=== PATIENT | female | born 1975 | race Caucasian/White ===

== ENCOUNTER 2016-06-14 18:24 | Outpatient (CLI) | payer MEDICAID ==
[~2016-06-14] VITALS: Ht 154.9 cm; Wt 106.4 kg
--- OUTSIDE RECORDS SUMMARY | 2016-06-14 18:49 | XMS REPORT | CCD ---
Author Author ELIOT SIMPSON Organization Unknown Address [address] [place], [place] [id number] Care Team Providers Care Critical Care Nurse Practitioner Name Role Phone MEGAN PHYS, ER Attphys MEGAN PHYS, ER Prisurg Vital Signs Unknown. Allergies Allergy Code Allergy Type Reaction Status No Known Drug Allergies 0 No known drug allergies Active Procedures Unknown. History of Immunizations Unknown. Problems Problem Code Start Date Resolved Date Status INCOMPLETE MISCARRIAGE [id number] Active Results Unknown. Medications Medication Code Dose Units Frequency Route Modification Start Date/Time Stop Date/Time Motrin 800MG Oral Tablet 891940 1 TABLET THREE TIMES A DAY BY MOUTH TAKE WITH FOOD 04/12/2012 11:27 Folic Acid 1MG Oral Tablet 840629 1 TABLET DAILY BY MOUTH 04/12/2012 11:29 Medications Administered Unknown. Encounters Unknown. Social History Smoking Status Code Start Date End Date Never smoker [id number] Patient Decision Aids Unknown. Instructions You were admitted to [facility] on 09/18/2013. You were discharged from [facility] on 09/18/2013. Should you have any questions prior to discharge, please contact a member of your healthcare team. If you have left the hospital and have any questions, please contact your primary care physician. Chief Complaint and Reason For Visit Chief Complaint Date of Onset TOOTHACHE Function Status Unknown. Referral/Transition of Care Unknown.
[2016-06-14 18:50] VITALS: BP 177/81
[2016-06-14] MEDS ORDERED: NIFE30TA2 PO ×2 (19:13→20:40)
[2016-06-14] MEDS ORDERED: NIFEdipine ER 30 MG (PROCARDIA XL) TAB PO NR (19:15)
[2016-06-14 19:40] VITALS: BP 175/74
[2016-06-14 19:51] LABS: BASOPHILS % (AUTO) 0 % (0-10); EOSINOPHILS # (AUTO) 0.1 10^3/uL (0.0-0.3); EOSINOPHILS % (AUTO) 1 % (0-10); LYMPHOCYTES # (AUTO) 1.7 X 10^3 (1.0-4.0); LYMPHOCYTES % (AUTO) 23 % (12-44); MEAN CORPUSCULAR HEMOGLOBIN 29 PG (25-34); MEAN CORPUSCULAR HGB CONC 34 G/DL (32-36); MEAN CORPUSCULAR VOLUME 85 FL (80-99); MEAN PLATELET VOLUME 10.8 FL (7.4-10.4); MONOCYTES # (AUTO) 0.6 X 10^3 (0.0-1.0); MONOCYTES % (AUTO) 8 % (0-12); NEUTROPHILS # (AUTO) 5.1 X 10^3 (1.8-7.8); NEUTROPHILS % (AUTO) 69 % (42-75); PLATELET COUNT 184 10^3/uL (130-400); RED BLOOD COUNT 3.64 10^6/uL (4.35-5.85); RED CELL DISTRIBUTION WIDTH 13.6 % (10.0-14.5); WHITE BLOOD COUNT 7.5 10^3/uL (4.3-11.0)
[2016-06-14 19:55] VITALS: BP 157/69
[2016-06-14 20:10] VITALS: BP 156/59
[2016-06-14] MEDS ORDERED: PNV1TABL81 PO (20:11)
[2016-06-14 20:12] LABS: ALANINE AMINOTRANSFERASE 8 U/L (0-55); ALBUMIN 3.4 G/DL (3.2-4.5); ANION GAP 10 MMOL/L (5-14); ASPARTATE AMINO TRANSFERASE 11 U/L (5-34); BILIRUBIN,TOTAL 1.3 MG/DL (0.1-1.0); BLOOD UREA NITROGEN 6 MG/DL (7-18); BUN/CREATININE RATIO 10; CALCIUM 9.2 MG/DL (8.5-10.1); CARBON DIOXIDE 21 MMOL/L (21-32); CHLORIDE 106 MMOL/L (98-107); CREATININE SERUM 0.58 MG/DL (0.60-1.30); GFR ESTIMATED > 60; GLUCOSE 81 MG/DL (70-105); LACTATE DEHYDROGENASE 112 U/L (125-220); POTASSIUM 3.4 MMOL/L (3.6-5.0); SODIUM 137 MMOL/L (135-145); TOTAL PROTEIN 6.3 G/DL (6.4-8.2)
[2016-06-14] MEDS ORDERED: FOLI0.4T2 PO (20:13)
[2016-06-14 20:28] VITALS: BP 147/65
--- NOTE | 2016-06-15 10:53 | Physician Query-Final Dx ---
JOSE MENDOZA 06/15/16 1053: Clinic Account Progress/Dx Physician Query: Please give diagnosis Date of Service Jun 14, 2016 at 18:24 YOANA MOSLEY DO 06/15/16 1653: Clinic Account Progress/Dx DIAGNOSIS: Diagnosis chronic hypertension in elevated blood pressures headache in JOSE MENDOZA Jun 15, 2016 10:53 YOANA MOSLEY DO Jun 15, 2016 16:53
== END 2016-06-14 20:47 | disposition home or self-care (01) ==
LOC: LDRP 18:24 → WSo 18:24
PROVIDERS: ATTEND Obstetrics & Gynecology
DX: O10.913 Unspecified pre-existing hypertension complicating pregnancy, third trimester (principal); R51 Headache; Z3A.34 34 weeks gestation of pregnancy
CPT/HCPCS: 36415; 80053; 83615; 84550; 85025; 99214

== ENCOUNTER 2016-06-26 20:40 | Outpatient (CLI) | payer MEDICAID ==
[~2016-06-26] VITALS: Ht 154.9 cm; Wt 108.4 kg
[2016-06-26 20:30] VITALS: BP 149/72
[2016-06-26 20:40] VITALS: BP 145/70
[~2016-06-26 20:40] MED LIST: FOLI0.4T2 PO; NIFE30TA2 PO; PNV1TABL81 PO
[2016-06-26 20:58] LABS: BILIRUBIN,URINE NEGATIVE (NEGATIVE); KETONES,URINE NEGATIVE (NEGATIVE); LEUKOCYTE ESTERASE ,URINE 1+ (NEGATIVE); NITRITE,URINE NEGATIVE (NEGATIVE); PH,URINE 6.5 (5-9); PROTEIN,URINE 1+ (NEGATIVE); UROBILINOGEN,URINE NORMAL (NORMAL)
[2016-06-26] MEDS ORDERED: FERR500P12 PO (21:01)
[2016-06-26 21:12] LABS: SQUAMOUS EPITHELIAL CELL,UR 0-2 /HPF; WBC,URINE 0-2 /HPF
[2016-06-26] MEDS ORDERED: NS IV 1000 ML 1,000 ML IV SCH (22:00)
[2016-06-27 01:00] VITALS: BP 145/70
[2016-06-27] MEDS: NS IV 1000 ML 1,000 ML IV SCH ×2 (01:58→08:34)
[2016-06-27 03:45] VITALS: BP 184/77
[2016-06-27 04:15] VITALS: BP 160/67
[2016-06-27 06:30] VITALS: BP 148/72
[2016-06-27 07:45] VITALS: BP 162/74
--- NOTE | 2016-06-27 08:34 | History & Physical-OB ---
OB - Chief Complaint & HPI Date Date of Admission: Date of Admission: Chief Complaint/History OB-Reason for Admission/Chief: contractions Hx : 14 Hx Para: 8 Expected Date of Delivery: Jul 25, 2016 Gestational Age in Weeks: 35 Other reason for admission: Patient presents with pelvic pressure and uterine contractions after being at a dance competition in [place] all weekend. Reports No change in vision, cp, sob. +FM. Admitted last night due to contractions q 4-6 min, but cervix not making change. This morning the patient reports improvement in contraction pattern and not as painful, but continues to have mild contractions. Admission Nurse Assessment Rev: Yes History of Labs O neg Antibody neg RI RPR NR HBsAg NR HIV NR GC neg GBS neg Allergies and Home Medications Allergies Coded Allergies: amlodipine (Verified Allergy, Unknown, scalp crawling, 06/14/16) Home Medications Ferrous Sulfate, Dried Unknown Strength Powder 500 GM MC DAILY (Reported) Folic Acid 0.4 Mg Tablet 0.4 MG PO DAILY (Reported) Nifedipine 30 Mg Tab.er.24 30 MG PO BID (Reported) Pnv No.122/Iron/Folic Acid 1 Each Tablet 1 EACH PO DAILY (Reported) OB - History Hx of Present Care: Yes Ultrasounds: Normal mid trimester US Obstetrical Complications: Gestational Hypertension, Other (AMA, Previous C- section) Medical Complications: Other (Morbid obesity, Chronic HTN) Obstetrical History Hx : 14 Hx Para: 8 Patient Past Medical History CHTN Social History/Family History Recent Infectious Disease Expo: No Immunizations Date of Influenza Vaccine: Jan 25, 2016 OB - Admission Exam Physical Exam Vitals: Vital Signs 06/27/16 06/27/16 03:45 06:30 Temp 97.9 Pulse 86 Resp 18 B/P 148/72 O2 Delivery Room Air HEENT: NCAT Heart: Rhythm Normal Lungs: Clear Abdomen: Gravid Extremities: Normal Reflexes: Normal Cervical Dilatation: None Effacement: 50% Station: -3 Membranes: Intact Heart Rate: 130's Accelerations: Accelerations Present Decelerations: No Decelerations Short Term Variability: Present High [employer] Coach Variability: Average (6-25) Contractions on Admission: 6-10 Minutes Apart Intensity: Mild Labs Laboratory Tests Test 06/26/16 20:40 Range/Units Urine Bacteria TRACE /HPF Urine Bilirubin NEGATIVE NEGATIVE Urine Casts NONE /LPF Urine Clarity CLEAR Urine Color YELLOW Urine Crystals NONE /LPF Urine Culture Indicated NO Urine Glucose (UA) NEGATIVE NEGATIVE Urine Ketones NEGATIVE NEGATIVE Urine Leukocyte Esterase 1+ H NEGATIVE Urine Mucus NEGATIVE /LPF Urine Nitrite NEGATIVE NEGATIVE Urine Protein 1+ H NEGATIVE Urine RBC NONE /HPF Urine RBC (Auto) NEGATIVE NEGATIVE Urine Specific [place] 1.015 L 1.016-1.022 Urine Squamous Epithelial Cells 0-2 /HPF Urine Urobilinogen NORMAL NORMAL MG/DL Urine WBC 0-2 /HPF Urine pH 6.5 5-9 OB - Assessment/Plan/Diagnosis Plan Other Plan BPP, and PIH labs this morning if negative, patient to keep PNC follow up in one week. PTL and PreE precautions reviewed. Discharge Diagnosis Diagnosis: 41 yo @ 36.0 weeks Uterine contractions without cervical change- improved CHTN with superimposed GHTN AMA GBS neg Previous TEMO JUAN DO Jun 27, 2016 8:34 am
[2016-06-27 09:03] LABS: BASOPHILS % (AUTO) 0 % (0-10); EOSINOPHILS % (AUTO) 1 % (0-10); LYMPHOCYTES # (AUTO) 1.3 X 10^3 (1.0-4.0); LYMPHOCYTES % (AUTO) 19 % (12-44); MEAN CORPUSCULAR HEMOGLOBIN 29 PG (25-34); MEAN CORPUSCULAR HGB CONC 33 G/DL (32-36); MEAN CORPUSCULAR VOLUME 86 FL (80-99); MEAN PLATELET VOLUME 11.3 FL (7.4-10.4); MONOCYTES # (AUTO) 0.5 X 10^3 (0.0-1.0); MONOCYTES % (AUTO) 7 % (0-12); NEUTROPHILS # (AUTO) 5.1 X 10^3 (1.8-7.8); NEUTROPHILS % (AUTO) 73 % (42-75); PLATELET COUNT 160 10^3/uL (130-400); RED BLOOD COUNT 3.35 10^6/uL (4.35-5.85); RED CELL DISTRIBUTION WIDTH 14.3 % (10.0-14.5)
[2016-06-27 09:18] LABS: ALANINE AMINOTRANSFERASE < 6 U/L (0-55); ALBUMIN 2.9 G/DL (3.2-4.5); ANION GAP 10 MMOL/L (5-14); ASPARTATE AMINO TRANSFERASE 10 U/L (5-34); BILIRUBIN,TOTAL 1.1 MG/DL (0.1-1.0); BLOOD UREA NITROGEN 4 MG/DL (7-18); BUN/CREATININE RATIO 8; CALCIUM 7.9 MG/DL (8.5-10.1); CARBON DIOXIDE 18 MMOL/L (21-32); CHLORIDE 110 MMOL/L (98-107); CREATININE SERUM 0.51 MG/DL (0.60-1.30); GFR ESTIMATED > 60; GLUCOSE 78 MG/DL (70-105); POTASSIUM 3.5 MMOL/L (3.6-5.0); SODIUM 138 MMOL/L (135-145); TOTAL PROTEIN 5.5 G/DL (6.4-8.2); URIC ACID 5.2 MG/DL (2.6-7.2)
[2016-06-27 09:20] LABS: PROTEIN/CREATININE RATIO 0.13
--- NOTE | 2016-06-27 11:15 | Diagnostic Imaging Report ---
INDICATION: Decreased movement. TECHNIQUE: Limited real-time grayscale images were obtained over the gravid uterus in various projections. FINDINGS: The biophysical profile score is 8 out of 8. Heart rate is 136 beats per minute. Amniotic fluid index is 10.3. Fetus is in transverse presentation. IMPRESSION: Normal biophysical profile score of 8 out of 8. Dictated by: Dictated on workstation # [id number]
== END 2016-06-27 11:18 | disposition home or self-care (01) ==
LOC: WSo 20:40 → LDRP 20:40 → WSo 06-27 11:18
PROVIDERS: ATTEND Obstetrics & Gynecology
DX: O47.03 False labor before 37 completed weeks of gestation, third trimester (principal); O10.913 Unspecified pre-existing hypertension complicating pregnancy, third trimester; O09.523 Supervision of elderly multigravida, third trimester; O34.219 Maternal care for unspecified type scar from previous cesarean delivery; Z3A.36 36 weeks gestation of pregnancy
CPT/HCPCS: 36415; 76819; 80053; 81000; 82570; 84156; 84550; 85025; 96360; 96361; 99214

== ENCOUNTER 2016-06-30 20:15 | Outpatient (CLI) | payer MEDICAID ==
[~2016-06-30] VITALS: Ht 154.9 cm; Wt 108.4 kg
[~2016-06-30 20:15] MED LIST changes: +FERR500P12 PO
[2016-06-30 20:45] VITALS: BP 154/70
[2016-06-30 21:00] VITALS: BP 155/66
[2016-06-30 21:47] LABS: BILIRUBIN,URINE NEGATIVE (NEGATIVE); KETONES,URINE 3+ (NEGATIVE); LEUKOCYTE ESTERASE ,URINE 3+ (NEGATIVE); NITRITE,URINE NEGATIVE (NEGATIVE); PH,URINE 6.5 (5-9); PROTEIN,URINE 1+ (NEGATIVE); UROBILINOGEN,URINE NORMAL (NORMAL)
[2016-06-30 21:56] LABS: PROTEIN/CREATININE RATIO 0.19
[2016-06-30 22:08] VITALS: BP 151/70
--- NOTE | 2016-07-01 09:34 | Diagnostic Imaging Report ---
INDICATION: Fall, gestational hypertension biophysical profile performed in a routine fashion. Biophysical profile score 6/8, score 0/2 for breathing, scored 2/2 for movement posture and tone and amniotic fluid. heart rate is 142 beats per minute. Amniotic fluid index is 9.2 cm. The fetus measured 37 weeks 3 days by composite measurements. IMPRESSION: biophysical profile score 6/8 with score of zero for breathing. Dictated by: Dictated on workstation # [id number]
--- NOTE | 2016-07-01 14:35 | Physician Query-Final Dx ---
JOSE MENDOZA 07/01/16 1435: Clinic Account Progress/Dx Physician Query: Please give diagnosis Date of Service Jun 30, 2016 at 20:15 TEMO JUAN DO 07/04/16 1224: Clinic Account Progress/Dx DIAGNOSIS: Diagnosis 36week iup Uterine contractions Previous c/s Advanced maternal age JOSE GALICIA Jul 01, 2016 14:35 TEMO JUAN DO Jul 04, 2016 12:24
[2016-07-07] MEDS ORDERED: AMOX500C2 PO (10:09)
== END 2016-07-01 00:15 | disposition home or self-care (01) ==
LOC: WSo 20:15 → LDRP 20:16 → WSo 07-01 00:15
PROVIDERS: ATTEND Obstetrics & Gynecology
DX: O47.03 False labor before 37 completed weeks of gestation, third trimester (principal); O10.913 Unspecified pre-existing hypertension complicating pregnancy, third trimester; O09.523 Supervision of elderly multigravida, third trimester; O34.219 Maternal care for unspecified type scar from previous cesarean delivery; Z3A.36 36 weeks gestation of pregnancy
CPT/HCPCS: 76805; 76819; 81000; 82570; 84156; 99213

== ENCOUNTER 2016-07-05 16:06 | Inpatient (IN) | payer MEDICAID ==
[~2016-07-05] VITALS: Ht 154.9 cm; Wt 107.5 kg
[2016-07-05 16:06] VITALS: BP 170/76
[2016-07-05] MEDS ORDERED: LACTATED RINGERS 1,000 ML IV ONE (16:13)
[2016-07-05] MEDS ORDERED: METOCLOPRAMIDE INJ 10 MG/2 ML (REGLAN) ONE (16:13)
[2016-07-05] MEDS ORDERED: CITRIC ACID/SOB CIT (BICITRA) 30 ML UDC ONE (16:13)
[2016-07-05] MEDS ORDERED: FAMOTIDINE 20MG/2ML IV (PEPCID) ONE (16:13)
--- NOTE | 2016-07-05 16:31 | History & Physical-OB ---
OB - Chief Complaint & HPI Date Date of Admission: Date of Admission: 07/05/2016 Chief Complaint/History OB-Reason for Admission/Chief: Section Hx : 14 Hx Para: 8 Expected Date of Delivery: Jul 25, 2016 Gestational Age in Weeks: 37 Gestational Age in Days: 1 Indication for : desires repeat Admission Nurse Assessment Rev: Yes History of Labs O neg Antibody neg RI RPR NR HIV NR HBsAg NR GC neg GBS neg Allergies and Home Medications Allergies Coded Allergies: amlodipine (Verified Allergy, Unknown, scalp crawling, 06/14/16) Home Medications Ferrous Sulfate, Dried Unknown Strength Powder 500 GM MC DAILY (Reported) Folic Acid 0.4 Mg Tablet 0.4 MG PO DAILY (Reported) Nifedipine 30 Mg Tab.er.24 30 MG PO BID (Reported) Pnv No.122/Iron/Folic Acid 1 Each Tablet 1 EACH PO DAILY (Reported) OB - History Hx of Present Care: Yes Ultrasounds: Normal mid trimester US Obstetrical Complications: Gestational Diabetes, Gestational Hypertension, Other (AMA, Obesity) Medical Complications: Other (CHTN) Patient Past Medical History CHTN, Morbid obesity Immunizations Date of Influenza Vaccine: Jan 25, 2016 OB - Admission Exam Physical Exam HEENT: Nasal Mucosa Normal Lungs: Clear Abdomen: Other (Gravid, low pelvic scar/uterine incisional pain) Extremities: Normal Reflexes: Normal Cervical Dilatation: Fingertip Effacement: 50% Station: -1 Membranes: Intact Heart Rate: 130's Accelerations: Accelerations Present Decelerations: No Decelerations Short Term Variability: Present Mcfp Variability: Average (6-25) Contractions on Admission: 6-10 Minutes Apart Intensity: Mild OB - Assessment/Plan/Diagnosis Assessment Assessment: section Plan Plan: Section Other Plan Proceed with Discharge Diagnosis Diagnosis: 41 yo G14 P 8 @ 37.1 Previous cs x 5 AMA Gestational HTN superimposed on CHTN GDMA1- non compliance with BS log GBS neg Uterine scar/incisional tenderness TEMO JUAN DO Jul 05, 2016 4:31 pm
[2016-07-05] MEDS ORDERED: METOCLOPRAMIDE INJ 10 MG/2 ML (REGLAN) IV ONE (16:45)
[2016-07-05] MEDS ORDERED: FAMOTIDINE 20MG/2ML IV (PEPCID) IV ONE (16:45)
[2016-07-05] MEDS ORDERED: CITRIC ACID/SOB CIT (BICITRA) 30 ML UDC PO ONE (16:45)
[2016-07-05] MEDS: LACTATED RINGERS 1,000 ML IV PRN ×2 (16:53→17:31)
[2016-07-05 16:58] LABS: BASOPHILS % (AUTO) 0 % (0-10); EOSINOPHILS % (AUTO) 0 % (0-10); LYMPHOCYTES # (AUTO) 1.4 X 10^3 (1.0-4.0); LYMPHOCYTES % (AUTO) 21 % (12-44); MEAN CORPUSCULAR HEMOGLOBIN 28 PG (25-34); MEAN CORPUSCULAR HGB CONC 33 G/DL (32-36); MEAN CORPUSCULAR VOLUME 84 FL (80-99); MEAN PLATELET VOLUME 11.7 FL (7.4-10.4); MONOCYTES # (AUTO) 0.5 X 10^3 (0.0-1.0); MONOCYTES % (AUTO) 7 % (0-12); NEUTROPHILS # (AUTO) 4.8 X 10^3 (1.8-7.8); NEUTROPHILS % (AUTO) 72 % (42-75); PLATELET COUNT 193 10^3/uL (130-400); RED BLOOD COUNT 3.69 10^6/uL (4.35-5.85); RED CELL DISTRIBUTION WIDTH 14.2 % (10.0-14.5); WHITE BLOOD COUNT 6.8 10^3/uL (4.3-11.0)
[2016-07-05 17:00] VITALS: BP 150/66
[2016-07-05] MEDS ORDERED: ceFAZolin INJECTION 1,000 MG in NS (IVPB) 50 ML IV NR (17:00)
[2016-07-05] MEDS ORDERED: PNV11TAB5 PO (17:00)
[2016-07-05] MEDS: ceFAZolin 2 GM/50 ML NS 50 ML IV ONE ×2 (17:14→17:16)
[2016-07-05 17:25] LABS: ALANINE AMINOTRANSFERASE 7 U/L (0-55); ALBUMIN 3.2 G/DL (3.2-4.5); ANION GAP 12 MMOL/L (5-14); ASPARTATE AMINO TRANSFERASE 14 U/L (5-34); BILIRUBIN,TOTAL 1.1 MG/DL (0.1-1.0); BLOOD UREA NITROGEN 6 MG/DL (7-18); BUN/CREATININE RATIO 11; CALCIUM 8.4 MG/DL (8.5-10.1); CARBON DIOXIDE 17 MMOL/L (21-32); CHLORIDE 108 MMOL/L (98-107); CREATININE SERUM 0.57 MG/DL (0.60-1.30); GFR ESTIMATED > 60; GLUCOSE 84 MG/DL (70-105); POTASSIUM 3.3 MMOL/L (3.6-5.0); SODIUM 137 MMOL/L (135-145); TOTAL PROTEIN 6.1 G/DL (6.4-8.2)
[2016-07-05 17:30] VITALS: BP 166/68
[2016-07-05] MEDS ORDERED: fentaNYL INJECTION 100 MCG/2 ML AMP ONE (17:32)
[2016-07-05] MEDS ORDERED: KETAMINE HCL 100 MG/ML 5 ML VIAL ONE (17:33)
[2016-07-05 18:00] VITALS: BP 150/67
[2016-07-05] MEDS ORDERED: OXYTOCIN/NORMAL SALINE 1,000 ML IV ONE (18:44)
[2016-07-05] MEDS ORDERED: KETOROLAC 30 MG/ML VIAL ONE (18:55)
[2016-07-05] MEDS ORDERED: ONDANSETRON 4 MG/2 ML (SDV) Z0FRAN ONE (18:55)
[2016-07-05] MEDS ORDERED: OXYTOCIN/NORMAL SALINE 500 ML IV SCH (19:14)
[2016-07-05] MEDS ORDERED: TETANUS,DIPTH,PERTUSS P/F (BOOSTRIX) 0.5 ML VIAL IM SCH (19:15)
[2016-07-05] MEDS: KETOROLAC 30 MG/ML VIAL IVP SCH (19:15)
[2016-07-05] MEDS ORDERED: ONDANSETRON 4 MG/2 ML (SDV) Z0FRAN IVP PRN (19:15)
[2016-07-05] MEDS ORDERED: MEASLES,MUMPS,RUBELLA 1 EA INJ SC SCH (19:15)
[2016-07-05] MEDS ORDERED: HYDROmorphone (DILAUDID) 2 MG/ML VIAL IVP PRN (19:15)
[2016-07-05 20:40] VITALS: BP 150/81
[2016-07-05] MEDS ORDERED: NIFEdipine ER 60 MG (PROCARDIA XL) TAB PO ONE (21:31)
[2016-07-05] MEDS: DOCUSATE SODIUM 100 MG (COLACE) CAP PO SCH (21:35)
[2016-07-05] MEDS: HYDROcodone/APAP 5 MG/325 MG (LORTAB) TAB PO PRN (21:35)
[2016-07-05 23:45] VITALS: BP 156/85
[2016-07-06] MEDS: KETOROLAC 30 MG/ML VIAL IVP SCH ×3 (00:38→12:31)
[2016-07-06] MEDS: CATHETER FLUSH 10 ML SYR IV SCH ×2 (00:41→06:27)
[2016-07-06] MEDS: HYDROcodone/APAP 5 MG/325 MG (LORTAB) TAB PO PRN ×6 (02:00→22:48)
[2016-07-06 04:00] VITALS: BP 121/70
[2016-07-06 05:38] LABS: BASOPHILS % (AUTO) 0 % (0-10); EOSINOPHILS # (AUTO) 0.1 10^3/uL (0.0-0.3); EOSINOPHILS % (AUTO) 1 % (0-10); LYMPHOCYTES # (AUTO) 1.3 X 10^3 (1.0-4.0); LYMPHOCYTES % (AUTO) 16 % (12-44); MEAN CORPUSCULAR HEMOGLOBIN 29 PG (25-34); MEAN CORPUSCULAR HGB CONC 34 G/DL (32-36); MEAN CORPUSCULAR VOLUME 85 FL (80-99); MEAN PLATELET VOLUME 11.5 FL (7.4-10.4); MONOCYTES # (AUTO) 0.6 X 10^3 (0.0-1.0); MONOCYTES % (AUTO) 7 % (0-12); NEUTROPHILS # (AUTO) 6.3 X 10^3 (1.8-7.8); NEUTROPHILS % (AUTO) 76 % (42-75); PLATELET COUNT 158 10^3/uL (130-400); RED BLOOD COUNT 3.27 10^6/uL (4.35-5.85); RED CELL DISTRIBUTION WIDTH 14.2 % (10.0-14.5); WHITE BLOOD COUNT 8.3 10^3/uL (4.3-11.0)
[2016-07-06 07:45] VITALS: BP 154/90
--- NOTE | 2016-07-06 07:55 | Postpartum Progress Note ---
Post Op Post-operative Day #1 Subjective: Patient is without complaints. Ambulating, voiding after olivares removed. Tolerating a regular diet without nausea or vomiting. Normal lochia. Pain is well controlled with oral pain medications. Passing flatus. Breast feeding although baby currently in nursery due to respiratory issues. Denies si/sx super-imposed pre-eclampsia. Objective: Vital Sign - Last 12Hours 07/05/16 07/05/16 07/06/16 20:40 23:45 04:00 Temp 97.8 99.7 97.3 Pulse 79 96 90 Resp 18 18 18 B/P 150/81 156/85 121/70 Pulse Ox 99 97 98 O2 Delivery Room Air Room Air Room Air Intake and Output 07/06/16 00:00 Intake Total 1050 ml Output Total 750 ml Balance 300 ml Physical Exam: General - Alert and oriented, no apparent distress Abdomen - Soft, appropriately tender to palpation, non-distended, fundus firm at umbilicus Incision - intact, steri strips saturated with blood, no erythema or induration Extremities - no edema, negative Katy's bilaterally Laboratory Tests 07/05/16 16:35: Alanine Aminotransferase (ALT/SGPT) 7, Albumin 3.2, Alkaline Phosphatase 110, Anion Gap 12, Aspartate Amino Transf (AST/SGOT) 14, BUN/Creatinine Ratio 11, Basophils # (Auto) 0.0, Basophils (%) (Auto) 0, Blood Urea Nitrogen 6L, Calcium Level 8.4L, Carbon Dioxide Level 17L, Chloride Level 108H, Creatinine 0.57L, Eosinophils # (Auto) 0.0, Eosinophils (%) (Auto) 0, Estimat Glomerular Filtration Rate > 60, Glucose Level 84, Hematocrit 31L, Hemoglobin 10.4L, Lymphocytes # (Auto) 1.4, Lymphocytes (%) (Auto) 21, Mean Corpuscular Hemoglobin 28, Mean Corpuscular Hemoglobin Concent 33, Mean Corpuscular Volume 84, Mean Platelet Volume 11.7H, Monocytes # (Auto) 0.5, Monocytes (%) (Auto) 7, Neutrophils # (Auto) 4.8, Neutrophils (%) (Auto) 72, Platelet Count 193, Potassium Level 3.3L, Red Blood Count 3.69L, Red Cell Distribution Width 14.2, Sodium Level 137, Total Bilirubin 1.1H, Total Protein 6.1L, White Blood Count 6.8 07/06/16 05:22: Basophils # (Auto) 0.0, Basophils (%) (Auto) 0, Eosinophils # (Auto) 0.1, Eosinophils (%) (Auto) 1, Hematocrit 28L, Hemoglobin 9.5L, Lymphocytes # (Auto) 1.3, Lymphocytes (%) (Auto) 16, Mean Corpuscular Hemoglobin 29, Mean Corpuscular Hemoglobin Concent 34, Mean Corpuscular Volume 85, Mean Platelet Volume 11.5H, Monocytes # (Auto) 0.6, Monocytes (%) (Auto) 7, Neutrophils # ( Auto) 6.3, Neutrophils (%) (Auto) 76H, Platelet Count 158, Red Blood Count 3.27L , Red Cell Distribution Width 14.2, White Blood Count 8.3 Assessment: 41 y/o post-operative day # 1, status post repeat CD. Recovering well, hemodynamically stable Acute blood loss anemia Hgb 9.5 Rh neg, infant Rh pos Worsening chronic HTN at term GDMA1, noncompliance with blood sugar recordings Obesity - BMI 45 Plan: Routine post-operative care. Encourage breast feeding. Encourage ambulation. VTE prophylaxis: SCDs. Would optimally add lovenox given multiple risk factors for VTE including /post-operative state, class III obesity but due to incisional bleeding overnight, will hold today and consider addition tomorrow. Ferrous sulfate supplementation. Procardia daily, watch BPs and symptoms. HELLP labs unremarkable. No indication for mag sulfate at this time. Fasting FSBS tomorrow Plan for discharge POD#2 or 3 Vitals - Labs Vital Signs - I&O Vital Signs Date Time Temp Pulse Resp B/P Pulse Ox O2 Delivery O2 Flow Rate FiO2 07/06/16 04:00 97.3 90 18 121/70 98 Room Air 07/05/16 23:45 99.7 96 18 156/85 97 Room Air 07/05/16 20:40 97.8 79 18 150/81 99 Room Air 07/05/16 18:00 85 20 150/67 Room Air 07/05/16 17:30 83 20 166/68 Room Air 07/05/16 17:00 83 20 150/66 Room Air 07/05/16 16:06 98.9 92 20 170/76 Room Air I & O 07/06/16 07:00 Intake Total 3820 ml Output Total 2200 ml Balance 1620 ml Labs Laboratory Tests 07/05/16 16:35: Alanine Aminotransferase (ALT/SGPT) 7, Albumin 3.2, Alkaline Phosphatase 110, Anion Gap 12, Aspartate Amino Transf (AST/SGOT) 14, BUN/Creatinine Ratio 11, Basophils # (Auto) 0.0, Basophils (%) (Auto) 0, Blood Urea Nitrogen 6L, Calcium Level 8.4L, Carbon Dioxide Level 17L, Chloride Level 108H, Creatinine 0.57L, Eosinophils # (Auto) 0.0, Eosinophils (%) (Auto) 0, Estimat Glomerular Filtration Rate > 60, Glucose Level 84, Hematocrit 31L, Hemoglobin 10.4L, Lymphocytes # (Auto) 1.4, Lymphocytes (%) (Auto) 21, Mean Corpuscular Hemoglobin 28, Mean Corpuscular Hemoglobin Concent 33, Mean Corpuscular Volume 84, Mean Platelet Volume 11.7H, Monocytes # (Auto) 0.5, Monocytes (%) (Auto) 7, Neutrophils # (Auto) 4.8, Neutrophils (%) (Auto) 72, Platelet Count 193, Potassium Level 3.3L, Red Blood Count 3.69L, Red Cell Distribution Width 14.2, Sodium Level 137, Total Bilirubin 1.1H, Total Protein 6.1L, White Blood Count 6.8 07/06/16 05:22: Basophils # (Auto) 0.0, Basophils (%) (Auto) 0, Eosinophils # (Auto) 0.1, Eosinophils (%) (Auto) 1, Hematocrit 28L, Hemoglobin 9.5L, Lymphocytes # (Auto) 1.3, Lymphocytes (%) (Auto) 16, Mean Corpuscular Hemoglobin 29, Mean Corpuscular Hemoglobin Concent 34, Mean Corpuscular Volume 85, Mean Platelet Volume 11.5H, Monocytes # (Auto) 0.6, Monocytes (%) (Auto) 7, Neutrophils # ( Auto) 6.3, Neutrophils (%) (Auto) 76H, Platelet Count 158, Red Blood Count 3.27L , Red Cell Distribution Width 14.2, White Blood Count 8.3 ELIJAH KAPADIA MD Jul 06, 2016 07:55
--- NOTE | 2016-07-06 07:56 | Discharge Inst-Women's Service ---
Discharge Inst-Women's Serv Depart Medication/Instructions New, Converted or Re-Newed RX: RX on Chart Final Diagnosis Worsening chronic hypertension at term, history of delivery Consults/Follow Up Additional Follow Up: Yes Orders/Referrals [address] Escobar for BP check/incision check [address] Escobar Activity Driving Instructions: No Driving for 1 Week (or while taking narcotic pain medications) NO SMOKING: NO SMOKING Nothing Inside Vagina: No Douching, No Onida, No Tampons Other Activity No lifting > 10 lb, no strenuous activity until cleared by Dr. Escobar to do so Diet Discharge Diet: No Restrictions Symptoms to Report to DrGavin: Bleeding Excessive, Pain Increased, Fever Over 101 Degrees F, Pain/Pressure in Chest, Vaginal Bleeding Increase, Dizziness/Fainting , Nausea/Vomiting, Shortness of Breath Severe headache, vision changes, right upper quadrant abdominal pain, sudden increase in edema For Any Problems or Questions: Contact Your Physician, Go to Emergency Room Skin/Wound Care Infection Signs and Symptoms: Increased Redness, Foul Odor of Wound, Increased Drainage Operative Area Clean and Dry: Keep Incision Clean/Dry Stitches/Keith/Dermabond: Dermabond, Care of Stitches Bathing Instructions: ELIJAH Sanz MD Jul 06, 2016 07:56
[2016-07-06] MEDS ORDERED: HYDR-3812 PO (07:57)
[2016-07-06] MEDS ORDERED: IBUP-1773 PO (07:57)
[2016-07-06] MEDS ORDERED: DOCU100C37 PO (07:57)
[2016-07-06] MEDS ORDERED: NIFEdipine ER 60 MG (PROCARDIA XL) TAB PO SCH (09:00)
[2016-07-06] MEDS: DOCUSATE SODIUM 100 MG (COLACE) CAP PO SCH ×2 (09:49→20:33)
[2016-07-06] MEDS: NIFEdipine ER 60 MG (PROCARDIA XL) TAB PO SCH (12:29)
--- NOTE | 2016-07-06 12:34 | OPERATIVE REPORT ---
PROCEDURE PHYSICIAN: TEMO JUAN DATE OF PROCEDURE: 07/05/2016 PREOPERATIVE DIAGNOSIS: 1. 41-year-old G14, P6 at 37 weeks and one day gestation. 2. Previous section x5. 3. Advanced maternal age. 4. Superimposed gestational hypertension on chronic hypertension. 5. Morbid obesity. 6. Uterine scar tenderness. POSTOPERATIVE DIAGNOSES: 1. 41-year-old G14, P6 at 37 weeks and one day gestation. 2. Previous section x5. 3. Advanced maternal age. 4. Superimposed gestational hypertension on chronic hypertension. 5. Morbid obesity. 6. Uterine scar tenderness. PROCEDURE: Repeat low transverse section. SURGEON: Dr. Temo Juan. ANESTHESIA: Spinal. ESTIMATED BLOOD LOSS: 600 mL. URINE OUTPUT: 100 mL, clear at the end of the procedure. FLUIDS: 1500 mL lactated ringer solution. FINDINGS: Live male infant weighing 7 pounds even, Apgars of 8 and 8. Grossly normal appearing uterus, bilateral fallopian tubes, and ovaries with extensive scarring of the rectus fascia to the rectus muscle and peritoneal tissue. INDICATIONS FOR THE PROCEDURE: This 41-year-old female was followed in my office and scheduled for repeat at 39 weeks. Her was complicated by chronic hypertension which became worsening throughout the given the diagnosis of gestational hypertension superimposed on chronic hypertension. She also is advanced maternal age at age 41. She had normal free cell DNA testing through the . She began to have elevated blood pressures in the 170s/100s and presented today with lower uterine tenderness and contractions. Due to patient's gestational age of 37 weeks and indication for suspected uterine dehiscence, I did discuss with the patient proceeding with at 37 weeks. Risks of the procedures have the patient in detail including risk of bleeding, risk of infection, risk of blood transfusion, risk of anesthesia, risk to the infant at 37 weeks and delivery at 37 weeks, risk for need for hysterectomy and even were all discussed with the patient. After all of her questions were answered, consent is obtained and patient was taken the operating room. OPERATIVE REPORT IN DETAIL: Once in the operating room, spinal analgesia was found to be adequate. She was placed in the supine position, leftward tilt, prepped and draped in the normal sterile fashion. Anesthesia was tested, a timeout is performed and 2 grams Ancef are administered. I then make a Pfannenstiel skin incision through previously existing scar using a knife and carried down to the underlying fascia using the Bovie cautery. The fascial incision was extended laterally using Bovie cautery the deep layer of the fascia is scarred and adhesed to the underlying rectus muscles which allows me to separate the rectus muscles laterally as these muscles are essentially obliterated by me taking down the fascia. This exposes the peritoneum down the midline which was also scarred to the back of the fascia, I enter it as cephalad as I could to avoid any bladder injury. I then extend this excision laterally with good visualization of underlying bowel and bladder using the Metzenbaum scissors. Once this is extended laterally I have adequate peritoneal access and place an Kostas ring retractor into the peritoneal incision. Once it is deployed excellent lateral sidewall retraction is noted. I then am able to visualize the lower uterine segment which is found to be thinned out. I make a low transverse incision through the uterus using a knife and bluntly dissect the peritoneum and serosa off the lower uterine segment creating a bladder flap. I then proceed with my myotomy until membranes are visualized. I then extend the uterine incision using bandage scissors laterally and superiorly and then perform amniotomy using an Allis clamp. Clear fluid is noted at the time of rupture. The is found in vertex presentation. Its head is elevated up to the incision. With gentle fundal pressure, the infant's head is delivered through the incision where the naris and oropharynx are bulb suctioned. Anterior posterior shoulders were delivered and the is then brought onto the operative field where the cord is dually clamped and cut and the is handed off to the awaiting nurses in attendance. The cord blood was collected. Three vessel cord with intact placenta is delivered spontaneously thereafter. IV Pitocin is initiated to facilitate uterine contractions. The uterine fundus becomes firmer by manual massage. The uterus is exteriorized and cleared of all endometrial, clots and debris. I then proceed with exteriorizing the uterus and closing the uterine incision using 0 Vicryl suture in a running lock fashion. A second layer of imbricating 0 Monocryl is placed. Excellent hemostasis is noted after doing so. I then place the uterus back into the incision, copiously irrigate the pelvis using normal saline. Once again, no active bleeding is noted from any of my dissection planes. I then proceed with placing intercede antiadhesive over my low transverse incision and proceed with closing the peritoneum using 3-0 Vicryl suture in a running fashion. The fascia is reapproximated using 0 Vicryl suture in a running fashion. Subcutaneous tissues reapproximated using 3-0 plain interrupted subcutaneous stitch and skin reapproximated using 4-0 Monocryl in a running, subcuticular stitch. Steri-strips were placed over the incision and a sterile dressing and adhesive white tape. The patient tolerated the procedure well. She was taken to recovery area in stable condition. Lap and sponge counts were correct at the end of the procedure. Instrument counts correct as well. Job ID: [id number] Dictated Date: 07/05/2016 19:16:03 Harvest Crew Supervisor Date: 07/06/2016 12:18:00 / michael
--- NOTE | 2016-07-06 12:39 | Anesthesia-Regional Post-Op ---
Regional Patient Condition Mental Status: Alert, Oriented x3 Circulation: Same as Pre-Op Headache: Absent Sensation: Full Recovery Motor Block: Absent Post Op Complications Complications None Follow Up Care/Instructions Patient Instructions None needed. Anesthesia/Patient Condition Patient is doing well, no complaints, stable vital signs, no apparent adverse anesthesia problems. No complications reported per nursing. FERNANDEZ MCQUEEN CRNA Jul 06, 2016 12:39
--- NOTE | 2016-07-06 13:05 | Anesthesia-Regional Post-Op ---
Regional Patient Condition Mental Status: Alert, Oriented x3 Circulation: Same as Pre-Op Headache: Absent Sensation: Full Recovery Motor Block: Absent Post Op Complications Complications None Follow Up Care/Instructions Patient Instructions None needed. Anesthesia/Patient Condition Patient is doing well, no complaints, stable vital signs, no apparent adverse anesthesia problems. No complications reported per nursing. SENDY LARA CRNA Jul 06, 2016 13:05
[2016-07-06 13:51] VITALS: BP 147/74
[2016-07-06] MEDS: IBUPROFEN 600 MG (MOTRIN) TAB PO SCH (18:12)
[2016-07-06] MEDS: FERROUS SULF 325 MG (IRON) TAB PO SCH (18:14)
[2016-07-06 18:18] VITALS: BP 129/68
[2016-07-06 20:33] VITALS: BP 149/81
[2016-07-07 01:18] VITALS: BP 144/86
[2016-07-07] MEDS: IBUPROFEN 600 MG (MOTRIN) TAB PO SCH ×3 (01:18→13:51)
[2016-07-07] MEDS: HYDROcodone/APAP 5 MG/325 MG (LORTAB) TAB PO PRN ×3 (05:26→15:24)
[2016-07-07 08:00] VITALS: BP 139/78
[2016-07-07] MEDS: FERROUS SULF 325 MG (IRON) TAB PO SCH (08:14)
[2016-07-07] MEDS: DOCUSATE SODIUM 100 MG (COLACE) CAP PO SCH (08:14)
[2016-07-07] MEDS: NIFEdipine ER 60 MG (PROCARDIA XL) TAB PO SCH (08:15)
[2016-07-07] MEDS ORDERED: AMOX500C2 PO (10:09)
--- NOTE | 2016-07-07 10:11 | Progress Note-Standard ---
Standard Progress Note Progress Notes/Assess & Plan Progress/Assessment & Plan Post-operative Day #1 Subjective: Patient is without complaints. Ambulating, voiding after olivares removed. Tolerating a regular diet without nausea or vomiting. Normal lochia. Pain is well controlled with oral pain medications. Passing flatus. Breast feeding although baby currently in nursery due to respiratory issues. Denies si/sx super-imposed pre-eclampsia. Objective: Vital Sign - Last 12Hours 07/05/16 07/05/16 07/06/16 20:40 23:45 04:00 Temp 97.8 99.7 97.3 Pulse 79 96 90 Resp 18 18 18 B/P 150/81 156/85 121/70 Pulse Ox 99 97 98 O2 Delivery Room Air Room Air Room Air Intake and Output 07/06/16 00:00 Intake Total 1050 ml Output Total 750 ml Balance 300 ml Physical Exam: General - Alert and oriented, no apparent distress Abdomen - Soft, appropriately tender to palpation, non-distended, fundus firm at umbilicus Incision - intact, steri strips saturated with blood, no erythema or induration Extremities - no edema, negative Katy's bilaterally Laboratory Tests 07/05/16 16:35: Alanine Aminotransferase (ALT/SGPT) 7, Albumin 3.2, Alkaline Phosphatase 110, Anion Gap 12, Aspartate Amino Transf (AST/SGOT) 14, BUN/Creatinine Ratio 11, Basophils # (Auto) 0.0, Basophils (%) (Auto) 0, Blood Urea Nitrogen 6L, Calcium Level 8.4L, Carbon Dioxide Level 17L, Chloride Level 108H, Creatinine 0.57L, Eosinophils # (Auto) 0.0, Eosinophils (%) (Auto) 0, Estimat Glomerular Filtration Rate > 60, Glucose Level 84, Hematocrit 31L, Hemoglobin 10.4L, Lymphocytes # (Auto) 1.4, Lymphocytes (%) (Auto) 21, Mean Corpuscular Hemoglobin 28, Mean Corpuscular Hemoglobin Concent 33, Mean Corpuscular Volume 84, Mean Platelet Volume 11.7H, Monocytes # (Auto) 0.5, Monocytes (%) (Auto) 7, Neutrophils # (Auto) 4.8, Neutrophils (%) (Auto) 72, Platelet Count 193, Potassium Level 3.3L, Red Blood Count 3.69L, Red Cell Distribution Width 14.2, Sodium Level 137, Total Bilirubin 1.1H, Total Protein 6.1L, White Blood Count 6.8 07/06/16 05:22: Basophils # (Auto) 0.0, Basophils (%) (Auto) 0, Eosinophils # (Auto) 0.1, Eosinophils (%) (Auto) 1, Hematocrit 28L, Hemoglobin 9.5L, Lymphocytes # (Auto) 1.3, Lymphocytes (%) (Auto) 16, Mean Corpuscular Hemoglobin 29, Mean Corpuscular Hemoglobin Concent 34, Mean Corpuscular Volume 85, Mean Platelet Volume 11.5H, Monocytes # (Auto) 0.6, Monocytes (%) (Auto) 7, Neutrophils # ( Auto) 6.3, Neutrophils (%) (Auto) 76H, Platelet Count 158, Red Blood Count 3.27L , Red Cell Distribution Width 14.2, White Blood Count 8.3 Assessment: 41 y/o post-operative day # 2, status post repeat CD. Recovering well, hemodynamically stable Acute blood loss anemia Hgb 9.5 Worsening chronic HTN at term GDMA1 Obesity - BMI 45 Plan: Routine post-operative care. Encourage breast feeding. Encourage ambulation. Ferrous sulfate supplementation. Procardia daily Plan for discharge later today TEMO JUAN DO Jul 07, 2016 10:11 am
[2016-07-07 12:20] VITALS: BP 136/72
[2016-07-07 16:00] VITALS: BP 136/72
== END 2016-07-07 16:00 | disposition home or self-care (01) | DRG 765 ==
LOC: WSo 16:06 → LDRP 16:07 → WSo 16:33 → LDRP 17:40 → WS 20:20
PROVIDERS: ADMIT Obstetrics & Gynecology; ATTEND Obstetrics & Gynecology
PROC: 10D00Z1 Extraction of Products of Conception, Low, Open Approach (ICD-10-PCS; principal; 2016-07-05 18:14)
DX: O34.211 Maternal care for low transverse scar from previous cesarean delivery (principal); O09.523 Supervision of elderly multigravida, third trimester; O24.420 Gestational diabetes mellitus in childbirth, diet controlled; O10.92 Unspecified pre-existing hypertension complicating childbirth; O99.214 Obesity complicating childbirth; E66.01 Morbid (severe) obesity due to excess calories; Z68.41 Body mass index [BMI] 40.0-44.9, adult; Z37.0 Single live birth; Z3A.37 37 weeks gestation of pregnancy; Z23 Encounter for immunization
CPT/HCPCS: 36415; 80053; 82962; 83033; 85025; 86850; 86900; 86901; 88307; 90715; 94664; 99212

== ENCOUNTER → 2018-03-16 | Outpatient (CLI) | payer MEDICAID ==
[~2018-03-16] MED LIST changes: +ACHD5005 PO; +AMOX500C2 PO; +DOCU100C37 PO; +IBUP-1773 PO; +IOHEXOL 350 MG/ML 100 ML (OMNIPAQUE 350) VIAL IV ONE; +NS 250 ML (IVPB) BAG IV ONE; +PNV11TAB5 PO; +RECEIVED CONTRAST (Hold Metformin) IV SCH
--- NOTE | 2018-03-16 11:40 | Diagnostic Imaging Report ---
INDICATION: Right lower quadrant pelvic pain. TECHNIQUE: Multiple real-time grayscale sonographic images were obtained of the pelvis transabdominally and transvaginally. CORRELATION STUDY: None FINDINGS: UTERUS/ENDOMETRIUM: Uterus measures 7.9 x 6.1 x 4.6 cm. Endometrial thickness is 9 mm. The uterus and endometrium appearing unremarkable. RIGHT OVARY: Not able to be visualized, perhaps owing to position or obscured by bowel. LEFT OVARY: 2.6 x 2.1 x 1.6 cm. There are follicles and/or cysts of the left ovary. Largest measuring 14 x 7 x 12 mm. Vascular flow is demonstrated to the left ovary. No significant free pelvic fluid. IMPRESSION: 1. Left ovarian cyst and/or follicles, likely physiologic. The right ovary is unable to be visualized perhaps owing to its position or obscured by overlying bowel gas. Dictated by: Dictated on workstation # [id number]
--- NOTE | 2018-03-16 12:02 | Diagnostic Imaging Report ---
PROCEDURE: CT abdomen with and without contrast. TECHNIQUE: Multiple contiguous axial CT images of the abdomen were obtained prior to and after intravenous administration of iodinated contrast. INDICATION: Lump in the right mid abdominal region. COMPARISON: No prior studies are available for comparison. FINDINGS: Imaging through the lung bases does show circumscribed noncalcified nodule on the left lower lobe measuring 12 mm in size. This does have a fairly benign appearance. The liver demonstrates diffuse low density consistent with hepatic steatosis. No discrete liver mass is identified. The gallbladder is surgically absent. No biliary ductal dilatation is seen. The pancreas and spleen are unremarkable. No adrenal mass is identified. Small low-density upper pole left kidney is noted suggestive of a cyst. The aorta is non-aneurysmal. There is an abdominal wall defect in the right para midline location consistent with a ventral hernia. This does contain multiple small bowel loops. However, no definite obstruction is seen. There is no ascites. Central retroperitoneum does show small lymph nodes in the left para-aortic region. No mesenteric lymphadenopathy is seen. IMPRESSION: 1. 12 mm circumscribed noncalcified nodule left lower lobe. Short followup with repeat CT chest in 3-6 months recommended to confirm stability. 2. Hepatic steatosis. 3. Right para midline ventral hernia containing small bowel loops. No obstruction is identified. Dictated by: Dictated on workstation # [id number]
--- NOTE | 2018-03-16 12:21 | Diagnostic Imaging Report ---
INDICATION: Routine screening. COMPARISON: No prior mammograms are available for comparison. TECHNIQUE: 2D and 3D bilateral screening mammography was performed with CAD. FINDINGS: Both breasts are heterogeneously dense, limiting the sensitivity of mammography. There is a tiny circumscribed nodule in the superior right breast, likely a small cyst. No spiculated mass or malignant appearing microcalcifications are seen. The axillae are unremarkable. IMPRESSION: No mammographic features suspicious for malignancy are identified. ACR BI-RADS Category 2: Benign findings. Result letter will be mailed to the patient. Note: At least 10% of breast cancer is not imaged by mammography. Dictated by: Dictated on workstation # [id number]
== END ==
LOC: RAD 09:29
PROVIDERS: ATTEND Obstetrics & Gynecology
DX: Z12.31 Encounter for screening mammogram for malignant neoplasm of breast (principal); N92.1 Excessive and frequent menstruation with irregular cycle; K76.0 Fatty (change of) liver, not elsewhere classified; K43.9 Ventral hernia without obstruction or gangrene
CPT/HCPCS: 74170; 76830; 76856; 77067

== ENCOUNTER 2018-03-22 20:16 | Emergency (ER) | payer MEDICAID ==
[~2018-03-22] VITALS: Ht 154.9 cm; Wt 107.5 kg
[~2018-03-22 20:16] MED LIST changes: -IOHEXOL 350 MG/ML 100 ML (OMNIPAQUE 350) VIAL IV ONE; -NS 250 ML (IVPB) BAG IV ONE; -RECEIVED CONTRAST (Hold Metformin) IV SCH
[2018-03-22] MEDS ORDERED: LACTATED RINGERS 1,000 ML IV ONE (21:39)
[2018-03-22] MEDS ORDERED: ONDANSETRON 4 MG/2 ML (SDV) Z0FRAN IVP ONE (21:45)
[2018-03-22 22:02] LABS: BASOPHILS % (AUTO) 0 % (0-10); EOSINOPHILS # (AUTO) 0.1 10^3/uL (0.0-0.3); EOSINOPHILS % (AUTO) 2 % (0-10); HEMATOCRIT 32 % (35-52); HEMOGLOBIN 9.6 G/DL (11.5-16.0); LYMPHOCYTES # (AUTO) 2.7 X 10^3 (1.0-4.0); LYMPHOCYTES % (AUTO) 31 % (12-44); MEAN CORPUSCULAR HEMOGLOBIN 22 PG (25-34); MEAN CORPUSCULAR HGB CONC 30 G/DL (32-36); MEAN CORPUSCULAR VOLUME 73 FL (80-99); MONOCYTES # (AUTO) 0.6 X 10^3 (0.0-1.0); MONOCYTES % (AUTO) 7 % (0-12); NEUTROPHILS # (AUTO) 5.3 X 10^3 (1.8-7.8); NEUTROPHILS % (AUTO) 60 % (42-75); PLATELET COUNT 331 10^3/uL (130-400); RED BLOOD COUNT 4.35 10^6/uL (4.35-5.85); RED CELL DISTRIBUTION WIDTH 15.1 % (10.0-14.5); WHITE BLOOD COUNT 8.8 10^3/uL (4.3-11.0)
[2018-03-22 22:02] LABS: BILIRUBIN,URINE NEGATIVE (NEGATIVE); CLARITY,URINE CLEAR; COLOR,URINE YELLOW; GLUCOSE, URINE (UA) NEGATIVE (NEGATIVE); KETONES,URINE NEGATIVE (NEGATIVE); LEUKOCYTE ESTERASE ,URINE 3+ (NEGATIVE); NITRITE,URINE NEGATIVE (NEGATIVE); PH,URINE 6 (5-9); PROTEIN,URINE NEGATIVE (NEGATIVE); UROBILINOGEN,URINE NORMAL (NORMAL)
[2018-03-22 22:09] LABS: BACTERIA,URINE FEW /HPF; RBC,URINE 50-100 /HPF; SQUAMOUS EPITHELIAL CELL,UR 0-2 /HPF
[2018-03-22 22:23] LABS: ALANINE AMINOTRANSFERASE 24 U/L (0-55); ALBUMIN 4.5 GM/DL (3.2-4.5); ALKALINE PHOSPHATASE 65 U/L (40-136); AMYLASE 98 U/L (25-125); BILIRUBIN,TOTAL 0.7 MG/DL (0.1-1.0); BUN/CREATININE RATIO 11; CALCIUM 9.3 MG/DL (8.5-10.1); CARBON DIOXIDE 24 MMOL/L (21-32); CHLORIDE 106 MMOL/L (98-107); CREATININE SERUM 0.71 MG/DL (0.60-1.30); GFR ESTIMATED > 60; GLUCOSE 125 MG/DL (70-105); LIPASE 70 U/L (8-78); POTASSIUM 3.3 MMOL/L (3.6-5.0); SODIUM 140 MMOL/L (135-145); TOTAL PROTEIN 7.6 GM/DL (6.4-8.2)
[2018-03-22] MEDS ORDERED: KETOROLAC 30 MG/ML VIAL IVP ONE (23:30)
[2018-03-22] MEDS ORDERED: cefTRIAXone FOR IV USE 1,000 MG in NS (IVPB) 50 ML IV ONE (23:30)
[2018-03-22] MEDS ORDERED: RX-TRAMADOL 50 MG (ULTRAM) TAB PPK#4 PO STA (23:56)
[2018-03-22] MEDS ORDERED: RX-ONDANSETRON 4 MG ODT (ZOFRAN) PPK #4 PO STA (23:56)
[2018-03-22] MEDS ORDERED: ONDN4T PO (23:56)
[2018-03-22] MEDS ORDERED: TRAM-42 PO (23:56)
[2018-03-22] MEDS ORDERED: NITR-65 PO (23:56)
--- NOTE | 2018-03-22 23:56 | ED Abdominal Pain ---
General Chief Complaint: Abdominal/GI Problems Stated Complaint: ABD PAIN.DIARRHEA. Nursing Triage Note: PT ARRIVES TO ED ROOM #5 WITH C/O ABD PAIN. PT STATES THAT SHE WAS DIAGNOSED WITH HERNIA ONE WEEK AGO VIA CT SCAN. PT STATES THAT SHE HAS AN APPT WITH DR. AVILEZ ON 03/28. PT STATES THAT SHE HAS BEEN HAVING INCREASING ABD PAIN THAT IS NOW 8/10. PT STATES THAT SHE IS HAVING LOOSE STOOLS/DIARRHEA [id number]. Sepsis Screen: No Definite Risk Source of Information: Patient History of Present Illness Date Seen by Provider: Mar 22, 2018 Time Seen by Provider: 21:35 Initial Comments PT ARRIVES VIA POV FROM HOME C/O LOWER ABDOMINAL PAIN "FOR AWHILE"--STATES HAS BEEN ONGOING FOR MANY MONTHS, BUT GRADUALLY GETTING WORSE OVER THE LAST FEW WEEKS. PT HAS HAD A "BULGE" IN RIGHT LOWER ABDOMEN FOR OVER A YEAR HAS NOT SOUGHT CARE FOR THIS PROBLEM, UNTIL SHE HAD A WE[facility] W[facility]AN EXAM WITH DR. JUAN A WEEK OR TWO AGO, AND CT AND ULTRASOUND WERE ORDERED WHICH SHOWED A HERNIA. PT HAS BEEN REFERRED TO DR. AVILEZ ON 03/28/18, BUT "DIDN'T WANT TO WAIT " C/O NAUSEA, NO VOMITING STOOLS HAVE BEEN LOOSE/WATERY FOR A COUPLE OF DAYS NO FEVER NO URINARY SYMPTOMS SYMPTOMS NO DIFFERENT TODAY HAS NOT TAKEN ANYTHING FOR PAIN LMP 1 WEEK AGO, NORMAL. 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 JUAN Allergies and Home Medications Allergies Coded Allergies: amlodipine (Verified Allergy, Unknown, scalp crawling, 06/14/16) Home Medications Amoxicillin 500 Mg Capsule, 500 MG PO TID Prescribed by: TEMO JUAN on 07/07/16 1009 Docusate Sodium 100 Mg Capsule, 100 MG PO BID Prescribed by: ELIJAH KAPADIA on 07/06/16 0757 Ferrous Sulfate, Dried Unknown Strength Powder, 325 MG PO DAILY, (Reported) Folic Acid 0.4 Mg Tablet, 0.4 MG PO DAILY, (Reported) Hydrocodone Bit/Acetaminophen 1 Each Tablet, 1-2 TAB PO Q4H PRN for MODERATE PAIN Prescribed by: ELIJAH KAPADIA on 07/06/16 0757 Ibuprofen 600 Mg Tablet, 600 MG PO Q6H Prescribed by: ELIJAH KAPADIA on 07/06/16 0757 Nifedipine 30 Mg Tab.er.24, 60 MG PO DAILY, (Reported) Nitrofurantoin Monohyd/M-Cryst 100 Mg Capsule, 100 MG PO BID Prescribed by: AIXA MACK on 03/22/182355 Ondansetron HCl 4 Mg Tab, 4 MG PO Q4H Prescribed by: AIXA MACK on 03/22/182355 Wue968/FA/Omega3/Dha/Fish Oil 1 Each Tab.chew, 2 EACH PO DAILY, (Reported) Tramadol HCl 50 Mg Tablet, 50 MG PO Q4H Prescribed by: AIXA MACK on 03/22/182355 Patient Home Medication List Home Medication List Reviewed: Yes Review of Systems Review of Systems Constitutional: no symptoms reported Respiratory: No Symptoms Reported Cardiovascular: No Symptoms Reported Gastrointestinal: See HPI, Abdominal Pain, Diarrhea, Nausea; Denies Vomiting Genitourinary: No Symptoms Reported Musculoskeletal: no symptoms reported Skin: no symptoms reported Psychiatric/Neurological: No Symptoms Reported Endocrine: No Symptoms Reported Past Putvdyf-Iszcgn-Ftuubf Hx Patient Social History Alcohol Use: Denies Use Recreational Drug Use: No Smoking Status: Former Smoker Type Used: Cigarettes Former Smoker, Quit: Jun 30, 2001 Recent Foreign Travel: No Contact w/Someone Who Travel: No Recent Infectious Disease Expo: No Recent Hopitalizations: No Physical Abuse: No Sexual Abuse: No Mistreated: No Fear: No Immunizations Up To Date PED Vaccines UTD: No Date of Influenza Vaccine: Jan 25, 2016 Seasonal Allergies Seasonal Allergies: No Past Medical History Surgeries: Yes (tubal, tubal revision, wisdom, tonsils, previous c/s) Section, Gallbladder, Tonsillectomy, Tubal Ligation Respiratory: No Cardiac: No Neurological: No : No Last Menstrual Period: Mar 16, 2018 Reproductive Disorders: No Genitourinary: No Gastrointestinal: Yes Abdominal Hernia Musculoskeletal: No Endocrine: Yes (OBESITY) HEENT: No Cancer: No Psychosocial: No Integumentary: No Blood Disorders: No Family Medical History Liver transplant 19 FATHER Physical Exam Vital Signs Vital Signs - First Documented 03/22/18 03/23/18 23:02 01:15 Temp 99.4 Pulse 99 Resp 16 B/P (MAP) 168/70 (102) Pulse Ox 98 O2 Delivery Room Air Capillary Refill : Less Than 3 Seconds Height/Weight/BMI Height: 5'1.00" Weight: 237lbs. 0.0oz. 107.488639gi; 44.8 BMI Method:Stated General Appearance: no apparent distress, obese, other (WALKS UPRIGHT AND MOVES WITHOUT DIFFICULTY) Neck: normal inspection Respiratory: normal breath sounds, no respiratory distress, no accessory muscle use Cardiovascular: regular rate, rhythm, no murmur Gastrointestinal: normal bowel sounds, soft, no organomegaly; No distended, No guarding, No rebound; tenderness (DIFFUSE SUPRAPUBIC/LOWER ABDOMINAL TENDERNESS. ), hernia (LARGE HERNIA IN RIGHT LOWER ABDOMEN/SUPRAPUBIC AREA-- SOFTBALL SIZED. SOFT, MILD TENDERNESS. ) Extremities: normal inspection, normal capillary refill Back: normal inspection, no CVA tenderness Neurologic/Psychiatric: unit assistant II-XII nml as tested, no motor/sensory deficits, alert, normal mood/affect, oriented x 3 Skin: normal color, warm/dry; No rash Progress/Results/Core Measures Results/Orders Lab Results Laboratory Tests Test 03/22/18 21:45 03/22/18 21:50 03/22/18 21:54 Range/Units Urine Color YELLOW Urine Clarity CLEAR Urine pH 6 5-9 Urine Specific [place] 1.020 1.016-1.022 Urine Protein NEGATIVE NEGATIVE Urine Glucose (UA) NEGATIVE NEGATIVE Urine Ketones NEGATIVE NEGATIVE Urine Nitrite NEGATIVE NEGATIVE Urine Bilirubin NEGATIVE NEGATIVE Urine Urobilinogen NORMAL NORMAL MG/DL Urine Leukocyte Esterase 3+ H NEGATIVE Urine RBC (Auto) 5+ H NEGATIVE Urine RBC 50-100 H /HPF Urine WBC 5-10 H /HPF Urine Squamous Epithelial Cells 0-2 /HPF Urine Crystals NONE /LPF Urine Bacteria FEW H /HPF Urine Casts NONE /LPF Urine Mucus NEGATIVE /LPF Urine Culture Indicated YES Urine Test NEGATIVE NEGATIVE White Blood Count 8.8 4.3-11.0 10^3/uL Red Blood Count 4.35 4.35-5.85 10^6/uL Hemoglobin 9.6 L 11.5-16.0 G/DL Hematocrit 32 L 35-52 % Mean Corpuscular Volume 73 L 80-99 FL Mean Corpuscular Hemoglobin 22 L 25-34 PG Mean Corpuscular Hemoglobin Concent 30 L 32-36 G/DL Red Cell Distribution Width 15.1 H 10.0-14.5 % Platelet Count 331 130-400 10^3/uL Mean Platelet Volume 10.0 7.4-10.4 FL Neutrophils (%) (Auto) 60 42-75 % Lymphocytes (%) (Auto) 31 12-44 % Monocytes (%) (Auto) 7 0-12 % Eosinophils (%) (Auto) 2 0-10 % Basophils (%) (Auto) 0 0-10 % Neutrophils # (Auto) 5.3 1.8-7.8 X 10^3 Lymphocytes # (Auto) 2.7 1.0-4.0 X 10^3 Monocytes # (Auto) 0.6 0.0-1.0 X 10^3 Eosinophils # (Auto) 0.1 0.0-0.3 10^3/uL Basophils # (Auto) 0.0 0.0-0.1 10^3/uL Sodium Level 140 135-145 MMOL/L Potassium Level 3.3 L 3.6-5.0 MMOL/L Chloride Level 106 98-107 MMOL/L Carbon Dioxide Level 24 21-32 MMOL/L Anion Gap 10 5-14 MMOL/L Blood Urea Nitrogen 8 7-18 MG/DL Creatinine 0.71 0.60-1.30 MG/DL Estimat Glomerular Filtration Rate > 60 BUN/Creatinine Ratio 11 Glucose Level 125 H 70-105 MG/DL Calcium Level 9.3 8.5-10.1 MG/DL Corrected Calcium 8.9 8.5-10.1 MG/DL Total Bilirubin 0.7 0.1-1.0 MG/DL Aspartate Amino Transf (AST/SGOT) 21 5-34 U/L Alanine Aminotransferase (ALT/SGPT) 24 0-55 U/L Alkaline Phosphatase 65 40-136 U/L Total Protein 7.6 6.4-8.2 GM/DL Albumin 4.5 3.2-4.5 GM/DL Amylase Level 98 25-125 U/L Lipase 70 8-78 U/L Glucometer 144 H 70-110 MG/DL My Orders Orders - AIXA MACK DO Accucheck Stat ONCE (03/22/18 21:39) Saline Lock/Iv-Start (03/22/18 21:39) Urine Bedside (03/22/18 21:39) Amylase (03/22/18 21:39) Cbc With Automated Diff (03/22/18 21:39) Comprehensive Metabolic Panel (03/22/18 21:39) Lipase (03/22/18 21:39) Ua Culture If Indicated (03/22/18 21:39) Lactated Ringers (Lr 1000 Ml Iv Solution (03/22/18 21:39) Ondansetron Injection (Zofran Injectio (03/22/18 21:45) Urine Culture (03/22/18 21:45) Ct Abd/Pelvis Wo(Kidney Stone) (03/22/18 22:42) Acute Abd Series (03/22/18 22:42) Ceftriaxone For Iv Use (Rocephin For I (03/22/18 23:30) Ketorolac Injection (Toradol Injection) (03/22/18 23:30) Rx-Tramadol Hcl (Rx-Ultram) (03/22/18 23:56) Rx-Ondansetron Po (Rx-Zofran Po) (03/22/18 23:56) Medications Given in ED Current Medications Medications Dose Ordered Sig/Kelin Route Start Time Stop Time Status Last Admin Dose Admin Ceftriaxone Sodium 1000 mg/ Sodium Chloride 50 ml @ 100 mls/hr ONCE ONCE IV 03/22/18 23:30 03/22/18 23:59 DC 03/23/18 00:17 100 MLS/HR Ketorolac Tromethamine 30 mg ONCE ONCE IVP 03/22/18 23:30 03/22/18 23:31 DC 03/23/18 00:14 30 MG Lactated Ringer's 1,000 ml @ 0 mls/hr Q0M ONCE IV 03/22/18 21:39 03/22/18 21:41 DC 03/22/18 21:52 0 MLS/HR Ondansetron HCl 4 mg ONCE ONCE IVP 03/22/18 21:45 03/22/18 21:46 DC 03/22/18 21:51 4 MG Vital Signs/I&O 03/22/18 03/23/18 23:02 01:15 Temp 99.4 98.4 Pulse 99 83 Resp 16 16 B/P (MAP) 168/70 (102) 143/63 (89) Pulse Ox 98 98 O2 Delivery Room Air 03/23/18 00:00 Intake Total 1000 ml Balance 1000 ml Blood Pressure Mean: 102 FSBG Bedside Testing Finger Stick Blood Glucose: 144 Blood Glucose Action Taken: RN notified Progress Progress Note : Progress Note PAIN AND NAUSEA RESOLVED ON DISMISSAL UNEVENTFUL ER STAY Diagnostic Imaging Comments ABDOMEN XRAYS--NO ACUTE PROCESS, PENDING RADIOLOGIST REVIEW CT ABDOMEN/PELVIS--LARGE HERNIA IN RIGHT PARASAGGITAL ANTERIOR PELVIC WALL WITH MULTIPLE LOOPS OF SMALL BOWEL. NO BOWEL OBSTRUCTION OR INFLAMMATORY CHANGES. 13 MM NONCALCIFIED PULMONARY NODULE LLL. UNCHANGED FROM PREVIOUS PER [facility] VIA FAX @ [phone] Reviewed: Reviewed by Me Departure Impression Primary Impression: Urinary tract infection Additional Impression: RIGHT LOWER ABDOMINAL HERNIA Disposition: HOME, SELF-CARE Condition: Improved Departure-Patient Inst. Referrals: TRENT AVILEZ MICHAEL S DO NO,LOCAL PHYSICIAN (PCP) Primary Care Physician [facility] Patient Instructions: Abdominal Hernia (DC), Urinary Tract Infection, Adult (DC ) Add. Discharge Instructions: LOTS OF CLEAR LIQUIDS--NO COFFEE, POP OR TEA TYLENOL AND MOTRIN NEEDED FOR PAIN FOLLOW UP WITH DR AVILEZ NEXT WEEK SCHEDULED FOLLOW UP WITH [facility] IN 1 WEEK TO RECHECK URINE--CALL IN AM FOR APPOINTMENT All discharge instructions reviewed with patient and/or family. Voiced understanding. Scripts Tramadol HCl (Ultram) 50 Mg Tablet 50 MG PO Q4H, #20 TAB Prov: AIXA MACK DO 03/22/18 Ondansetron HCl (Zofran) 4 Mg Tab 4 MG PO Q4H for Nausea/Vomiting, #10 TAB Prov: AIXA MACK DO 03/22/18 Nitrofurantoin Monohyd/M-Cryst (Macrobid 100 mg Capsule) 100 Mg Capsule 100 MG PO BID, #20 CAP Prov: AIXA MACK DO 03/22/18 AIXA MACK DO Mar 22, 2018 23:56
[2018-03-23 01:15] VITALS: BP 143/63
--- NOTE | 2018-03-23 06:50 | Diagnostic Imaging Report ---
EXAMINATION: Acute abdomen series 1126. INDICATION: Abdominal pain The accompanying erect PA chest shows the heart size to be within normal limits. The lungs are clear. There is no sign of a pneumoperitoneum. Supine and erect views of the abdomen were obtained. There is gas in both the large and small bowel in a nonspecific fashion. The ventral hernia seen on CT abdomen/pelvis exam performed prior to this study is not well appreciated on this exam. There is no evidence for a bowel obstruction. There is no mass, organomegaly or pathological calcification evident. Surgical clips are visualized in the right upper quadrant. The osseous structures are intact. IMPRESSION: The bowel gas pattern is nonspecific. There is no acute abnormality identified. The ventral hernia seen on the CT abdomen/pelvis exam is not well appreciated on this study. Dictated by: Dictated on workstation # [id number]
--- NOTE | 2018-03-23 11:05 | Diagnostic Imaging Report ---
PROCEDURE: CT urinary tract, rule out kidney stone. TECHNIQUE: Multiple contiguous axial images were obtained through the abdomen and pelvis without the use of intravenous contrast. INDICATION: Abdominal pain The previous CT abdomen/pelvis exam of 03/16/2018 noted a right para midline ventral hernia containing loops of small bowel. There is no sign of obstruction however. On this exam the defect in the intra-abdominal wall on the right is slightly greater measuring 4.7 CM as opposed to 4.3 CM on the previous study. Furthermore there is now a portion of the colon and more small bowel extending through this defect than on the prior exam. There is still no obstruction of the bowel however. The overall appearance of the abdomen and pelvis has not changed significantly otherwise. There is no acute abnormality noted. As seen on the prior exam the gallbladder is surgically absent. The well-circumscribed 12 MM nodule in the left infrahilar region noted on the prior study is again evident and no different. I would concur with recommendation of the previous exam that CT the chest be performed for further evaluation. The bone windows show no sign of a fracture or destructive lesion. IMPRESSION: 1. In the interval since the prior exam the defect in the abdominal wall on the right has increased slightly and there are now segments of large and small bowel extending through the defect into the subcutaneous fat. There is no sign of obstruction of the bowel however. 2. There is no acute abnormality of the abdomen or pelvis otherwise. 3. CT would be recommended for further evaluation of the noncalcified nodule in the left lung base. Dictated by: Dictated on workstation # [id number]
== END 2018-03-23 01:15 | disposition home or self-care (01) ==
LOC: EDUNIT# 20:16 → ER 20:17
DX: N39.0 Urinary tract infection, site not specified (principal); K46.9 Unspecified abdominal hernia without obstruction or gangrene; E66.9 Obesity, unspecified; Z68.41 Body mass index [BMI] 40.0-44.9, adult; Z88.8 Allergy status to other drugs, medicaments and biological substances; Z87.891 Personal history of nicotine dependence; Z98.51 Tubal ligation status; Z98.890 Other specified postprocedural states; Z87.19 Personal history of other diseases of the digestive system
CPT/HCPCS: 36415; 74022; 74176; 80053; 81000; 82150; 82962; 83690; 84703; 85025; 87088

== ENCOUNTER → 2018-04-04 | Outpatient (CLI) | payer MEDICAID ==
[~2018-04-04] MED LIST changes: +IOHEXOL 350 MG/ML 100 ML (OMNIPAQUE 350) VIAL IV ONE; +NITR-65 PO; +NS 250 ML (IVPB) BAG IV ONE; +ONDN4T PO; +RECEIVED CONTRAST (Hold Metformin) IV SCH; +TRAM-42 PO
--- NOTE | 2018-04-04 08:30 | Diagnostic Imaging Report ---
PROCEDURE: CT chest with contrast only. TECHNIQUE: Multiple contiguous axial images were obtained through the chest after administration of intravenous contrast. INDICATION: Left lower lobe pulmonary nodule. Multiple contiguous axial CT images of the thorax are obtained after intravenous administration of iodinated contrast. FINDINGS: Since previous study of 03/22/2018, there has been no significant change in the round circumscribed 1.2 cm nodule in the basilar aspect of left lower lobe. No additional pulmonary mass or infiltrate is identified. Note is made of an approximately 1.8 cm air cyst in the left upper lobe just lateral to the hilum. There is no significant pleural or pericardial fluid. There is no evidence of pathologic adenopathy within the thorax. Note is made of low-density throughout the liver. IMPRESSION: Stable appearance of circumscribed 1.2 cm left basilar pulmonary nodule. No additional mass is seen within the thorax. This could be reassessed with short-term CT followup in 3-4 months to document stability. Low-density in the liver is indicative of steatosis. Dictated by: Dictated on workstation # [id number]
== END ==
LOC: RAD 07:49
PROVIDERS: ATTEND Nurse Practitioner Family
DX: J30.9 Allergic rhinitis, unspecified (principal); R91.1 Solitary pulmonary nodule; Z87.891 Personal history of nicotine dependence
CPT/HCPCS: 71260

== ENCOUNTER 2018-04-05 14:15 | Outpatient (CLI) | payer MEDICAID ==
[~2018-04-05 14:15] MED LIST changes: -IOHEXOL 350 MG/ML 100 ML (OMNIPAQUE 350) VIAL IV ONE; -NS 250 ML (IVPB) BAG IV ONE; -RECEIVED CONTRAST (Hold Metformin) IV SCH
== END 2018-04-05 15:00 | disposition home or self-care (01) ==
LOC: SLEEP 14:15
PROVIDERS: ATTEND Nurse Practitioner Family
DX: G47.10 Hypersomnia, unspecified (principal)

== ENCOUNTER → 2018-05-21 | Outpatient (CLI) | payer MEDICAID ==
[~2018-05-21] MED LIST changes: +RT-ALBUTEROL SULF 2.5 MG/3 ML PRE-MIX VIAL INH ONE; +RT-ALBUTEROL SULF 2.5 MG/3 ML PRE-MIX VIAL ONE
== END ==
LOC: RT 15:09
PROVIDERS: ATTEND Nurse Practitioner Family
DX: R91.8 Other nonspecific abnormal finding of lung field (principal); R05 Cough; R06.00 Dyspnea, unspecified; J30.9 Allergic rhinitis, unspecified; Z87.891 Personal history of nicotine dependence
CPT/HCPCS: 94060; 94726; 94729

== ENCOUNTER 2018-06-04 05:36 | Outpatient (CLI) | payer MEDICAID ==
[~2018-06-04] VITALS: Ht 154.9 cm; Wt 107.5 kg
[~2018-06-04 05:36] MED LIST changes: -RT-ALBUTEROL SULF 2.5 MG/3 ML PRE-MIX VIAL INH ONE; -RT-ALBUTEROL SULF 2.5 MG/3 ML PRE-MIX VIAL ONE
[2018-06-04] MEDS ORDERED: FLUT1AER IH (12:48)
[2018-06-04] MEDS ORDERED: RT-ALBUINH IH (12:48)
== END 2018-06-04 12:58 | disposition home or self-care (01) ==
LOC: PREOP 05:36
PROVIDERS: ATTEND Surgery
DX: Z01.818 Encounter for other preprocedural examination (principal)

== ENCOUNTER 2018-06-07 11:18 | Day surgery (SDC) | payer MEDICAID ==
[~2018-06-07] VITALS: Ht 154.9 cm; Wt 107.5 kg
[~2018-06-07 11:18] MED LIST changes: +FLUT1AER IH; +RT-ALBUINH IH
[2018-06-07] MEDS ORDERED: ceFAZolin 2 GM IV Premixed 50 ML IV ONE (11:30)
[2018-06-07 11:35] VITALS: BP 141/80
[2018-06-07] MEDS: LACTATED RINGERS 1,000 ML IV PRN ×2 (11:35→14:00)
[2018-06-07 11:51] LABS: BASOPHILS % (AUTO) 0 % (0-10); EOSINOPHILS # (AUTO) 0.1 10^3/uL (0.0-0.3); EOSINOPHILS % (AUTO) 1 % (0-10); HEMATOCRIT 31 % (35-52); HEMOGLOBIN 8.9 G/DL (11.5-16.0); LYMPHOCYTES # (AUTO) 1.6 X 10^3 (1.0-4.0); LYMPHOCYTES % (AUTO) 24 % (12-44); MEAN CORPUSCULAR HEMOGLOBIN 20 PG (25-34); MEAN CORPUSCULAR HGB CONC 29 G/DL (32-36); MEAN CORPUSCULAR VOLUME 70 FL (80-99); MEAN PLATELET VOLUME 10.5 FL (7.4-10.4); MONOCYTES # (AUTO) 0.5 X 10^3 (0.0-1.0); MONOCYTES % (AUTO) 7 % (0-12); NEUTROPHILS # (AUTO) 4.4 X 10^3 (1.8-7.8); NEUTROPHILS % (AUTO) 68 % (42-75); PLATELET COUNT 310 10^3/uL (130-400); WHITE BLOOD COUNT 6.5 10^3/uL (4.3-11.0)
[2018-06-07] MEDS ORDERED: LIDOCAINE PF 2% 5 ML (XYLOCAINE) VIAL ONE (12:14)
[2018-06-07] MEDS ORDERED: proPOfol 200 MG/20 ML (DIPRIVAN) VIAL IV ONE (12:14)
[2018-06-07] MEDS ORDERED: ROCURONIUM 10 MG/ML 5 ML SYRINGE IV ONE ×2 (12:14→14:38)
[2018-06-07] MEDS ORDERED: fentaNYL INJECTION 100 MCG/2 ML AMP ONE ×2 (12:14→14:03)
[2018-06-07] MEDS ORDERED: ONDANSETRON 4 MG/2 ML (SDV) Z0FRAN ONE ×3 (12:14→15:51)
[2018-06-07] MEDS ORDERED: DEXAMETHASONE 10 MG/ML (DECADRON) 1 ML VIAL ONE (12:14)
[2018-06-07] MEDS ORDERED: SEVOFLURANE (ULTANE) 15 ML INHAL SOLN ONE ×6 (12:14→15:28)
[2018-06-07] MEDS ORDERED: MIDAZOLAM 2 MG/2 ML (VERSED) VIAL ONE (12:14)
--- OUTSIDE RECORDS SUMMARY | 2018-06-07 12:38 | XMS REPORT | CCD ---
Author Author MARY ANN PALOMARES Organization Unknown Address [address] [place] [address] Care Team Providers Care Medical Technicians Name Role Phone ONEYDA MANUEL MD Attphys ONEYDA MANUEL MD Prisurg Allergies Allergy Code Allergy Type Reaction Status No Known Drug Allergies 0 Drug allergy Active Active Medications Unknown or Not Available. Problems Problem Code Start Date Resolved Date Status labor [id number] 04/09/2016 Active Procedures Unknown or Not Available. Results Unknown or Not Available. Function Status Unknown or Not Available. History of Immunizations Unknown or Not Available. Plan of Treatment Unknown or Not Available. Social History Smoking Status Code Start Date End Date Never smoker [id number] Vital Signs Unknown or Not Available. Function Status Unknown or Not Available. Goals Unknown or Not Available. ASSESSMENTS Unknown or Not Available. Health Concerns Section Unknown or Not Available.
--- OUTSIDE RECORDS SUMMARY | 2018-06-07 12:38 | XMS REPORT | CCD ---
Author Author BORA RUSSELL Organization Unknown Address [address] [place] [address] Care Team Providers Care Tinter Photograph Name Role Phone IDLEYLD PARK ER, RITIKA DO Attphys IDLEYLD PARK ER, RITIKA DO Prisurg Allergies Allergy Code Allergy Type Reaction Status No Known Drug Allergies 0 Drug allergy Active Active Medications Unknown or Not Available. Problems Problem Code Start Date Resolved Date Status labor [id number] 04/09/2016 Active Procedures Procedure Code Procedure Type Date STREP SCREEN 12325349 SNOMED CT 08/19/2016 Results STREP SCREEN - Collect Date/Time: 08/19/2016 16:48 Test Name Code Test Result Test Units Test Ref Range STREP SCREEN 6556-5 NEGATIVE N/A NORMAL: NEGATIVE Encounters Encounter Diagnosis Diagnosis Code Start Date Labyrinthitis, right ear [id number] 08/19/2016 Function Status Unknown or Not Available. History of Immunizations Unknown or Not Available. Plan of Treatment Unknown or Not Available. Social History Smoking Status Code Start Date End Date Never smoker [id number] Vital Signs Unknown or Not Available. Function Status Unknown or Not Available. Goals Unknown or Not Available. ASSESSMENTS Unknown or Not Available. Health Concerns Section Unknown or Not Available.
--- OUTSIDE RECORDS SUMMARY | 2018-06-07 12:38 | XMS REPORT | CCD ---
Author Author GRAZYNA HARDY Unknown Address [address] [place] [address] Care Team Providers Care Waste/Materials Exchange Specialist Name Role Phone HARJEET MAGUIRE, CECIL Ponce Attphys 0 CECIL COSBY MD Prisurg 0 Allergies Allergy Code Allergy Type Reaction Status No Known Drug Allergies 0 Drug allergy Active Active Medications Unknown or Not Available. Problems Problem Code Start Date Resolved Date Status labor [id number] 04/09/2016 Active Procedures Unknown or Not Available. Results Unknown or Not Available. Encounters Encounter Diagnosis Diagnosis Code Start Date Other physeal fracture of lower end of right fibula, initial encounter for closed fracture [id number] 03/05/2017 Function Status Unknown or Not Available. History of Immunizations Unknown or Not Available. Plan of Treatment Unknown or Not Available. Social History Smoking Status Code Start Date End Date Never smoker [id number] Vital Signs Unknown or Not Available. Function Status Unknown or Not Available. Goals Unknown or Not Available. ASSESSMENTS Unknown or Not Available. Health Concerns Section Unknown or Not Available.
--- OUTSIDE RECORDS SUMMARY | 2018-06-07 12:38 | XMS REPORT | CCD ---
Author Author GRAZYNA HARDY Unknown Address [address] [place] [address] Care Team Providers Care Four Corner Stayer Machine Operator Name Role Phone NICOL MAGUIRE, TEMO Barnes Attphys TEMO CAMARENA MDsukarlos Allergies Allergy Code Allergy Type Reaction Status No Known Drug Allergies 0 Drug allergy Active Active Medications Unknown or Not Available. Problems Problem Code Start Date Resolved Date Status labor [id number] 04/09/2016 Active INCOMPLETE MISCARRIAGE 04158427 04/09/2016 Resolved Procedures Procedure Code Procedure Type Date ^UA AUTO DIPSTICK ONLY [id number] SNOMED CT 02/26/2016 UA ROUTINE C&S IF IND [id number] SNOMED CT 02/26/2016 Results UA ROUTINE C&S IF IND - Collect Date/Time: 02/26/2016 21:10 Test Name Code Test Result Test Units Test Ref Range COLOR YELLOW N/A NL: YELLOW APPEARANCE CLEAR N/A NL: CLEAR SPEC GRAV 1.015 N/A NL: 1.002 - 1.022 pH 7.0 N/A NL: 5 - 9 PROTEIN NEGATIVE N/A NL: NEGATIVE mg/dl GLUCOSE NEGATIVE N/A NL: NEGATIVE mg/dl KETONE NEGATIVE N/A NL: NEGATIVE mg/dl BILIRUBIN NEGATIVE N/A NL: NEGATIVE BLOOD NEGATIVE N/A NL: NEGATIVE NITRITE NEGATIVE N/A NL: NEGATIVE LEUK SCREEN NEGATIVE N/A NL: NEGATIVE MICRO INDICATED? NOT INDICATED N/A Function Status Unknown or Not Available. History of Immunizations Unknown or Not Available. Plan of Treatment Unknown or Not Available. Social History Smoking Status Code Start Date End Date Never smoker [id number] Vital Signs Unknown or Not Available. Function Status Unknown or Not Available. Goals Unknown or Not Available. ASSESSMENTS Unknown or Not Available. Health Concerns Section Unknown or Not Available.
--- OUTSIDE RECORDS SUMMARY | 2018-06-07 12:38 | XMS REPORT | CCD ---
Author Author GRAZYNA HARDY Unknown Address [address] [place] [address] Care Team Providers Care Coater Hand Name Role Phone ELENA SORIN DO Attphys 0 Allergies Allergy Code Allergy Type Reaction Status No Known Drug Allergies 0 Drug allergy Active Active Medications Medication Code Dose Units Frequency Route Modification Start Date/Time TERBUTALINE [BRETHINE] INJ 1 MG/ML VIAL 528860 0.25 MG X1 SUB Q 04/09/2016 06:06 Problems Problem Code Start Date Resolved Date Status labor [id number] 04/09/2016 Active INCOMPLETE MISCARRIAGE 14337078 04/09/2016 Resolved Procedures Procedure Code Procedure Type Date BEDSIDE GLUCOSE 88225803 SNOMED CT 04/09/[address] 04/09/2016 UA, OB DPSTCK ONLY 031277759 SNOMED CT 04/09/2016 Results BEDSIDE GLUCOSE - Collect Date/Time: 04/09/2016 07:07 Test Name Code Test Result Test Units Test Ref Range GLUCOSE POCT 117 MG/DL L=70 H=100 FIBRONECTIN - Collect Date/Time: 04/09/2016 06:45 Test Name Code Test Result Test Units Test Ref Range FIBRONECTIN 25024-7 POSITIVE N/A Function Status Unknown or Not Available. History of Immunizations Unknown or Not Available. Plan of Treatment Unknown or Not Available. Social History Smoking Status Code Start Date End Date Never smoker [id number] Vital Signs Vital Sign Value Unit Date/Time Recent/Initial? Weight Measured 240 [lb_av] 04/09/2016 05:58 Initial VS Height 61 [in_i] 04/09/2016 05:58 Initial VS BMI (Body Mass Index) 45.35 kg/m2 04/09/2016 05:58 Initial VS BSA (Body Surface Area) 2.16 m2 04/09/2016 05:58 Initial VS BP Systolic 129 mm[Hg] 04/09/2016 06:15 Initial VS BP Diastolic 59 mm[Hg] 04/09/2016 06:15 Initial VS Respiratory Rate 18 /min 04/09/2016 06:15 Initial VS Heart Rate 97 /min 04/09/2016 06:15 Initial VS Body Temperature 98 [degF] 04/09/2016 06:15 Initial VS Function Status Unknown or Not Available. Goals Unknown or Not Available. ASSESSMENTS Unknown or Not Available. Health Concerns Section Unknown or Not Available.
--- OUTSIDE RECORDS SUMMARY | 2018-06-07 12:38 | XMS REPORT | CCD ---
Author Author GRAZYNA HARDY Unknown Address [address] [place], [place] [address] Care Team Providers Care Energy Conservation Representative Name Role Phone [facility], RITIKA DO Attphys [facility], RITIKA DO Prisurg Vital Signs Unknown or Not Available. Allergies Allergy Code Allergy Type Reaction Status No Known Drug Allergies 0 No known drug allergies Active Procedures Unknown or Not Available. History of Immunizations Unknown or Not Available. Problems Problem Code Start Date Resolved Date Status labor 3865109 04/09/2016 Active INCOMPLETE MISCARRIAGE 14955857 04/09/2016 Resolved Results Unknown or Not Available. Active Medications Unknown or Not Available. Medications Administered During Visit Unknown or Not Available. Encounters Encounter Diagnosis Diagnosis Code Start Date Acute upper respiratory infection 31093432 01/11/2016 Social History Smoking Status Code Start Date End Date Never smoker [id number] Patient Decision Aids Unknown or Not Available. Discharge Instructions You were admitted to [facility] on 01/11/2016 21:55 with a principal diagnosis of Acute upper respiratory infection, unspecified You were discharged from [facility] on 01/11/2016 23:09 Should you have any questions prior to discharge, please contact a member of your healthcare team. If you have left the hospital and have any questions, please contact your primary care physician. Chief Complaint and Reason For Visit Chief Complaint Date of Onset COUGH CONGESTION EARACHES Function Status Unknown or Not Available. Plan of Care Unknown or Not Available. Referral/Transition of Care Unknown or Not Available.
--- OUTSIDE RECORDS SUMMARY | 2018-06-07 12:39 | XMS REPORT ---
Author Author Colleen Garduno [facility] Address [address] [place], [place] [address] Care Team Providers Care Patron Attendant Name Role Phone Colleen Garduno PCP Unavailable Allergies and Adverse Reactions Name Reaction Notes Norvasc Itching Plan of Treatment Not available. Medications Active Name Start Date Estimated Completion Date SIG Comments 28-800 mg-mcg oral tablet take 1 tablet by oral route daily nifedipine 60 mg oral tablet extended release take 1 tablet (60 mg) by oral route once daily iron 325 mg (65 mg iron) oral tablet take 1 tablet (325 mg) by oral route once daily Name Start Date Expiration Date SIG Comments Ciprodex 0.3-0.1 % otic drops,suspension 08/31/2016 09/07/2016 instill 4 drops into right ear by otic route 2 times per day for 7 days Problem List Not available. Vital Signs Date Time BP-Sys(mm[Hg] BP-Deepti(mm[Hg]) HR(bpm) RR(rpm) Temp WT HT HC BMI BSA BMI Percentile O2 Sat(%) 08/31/2016 5:54:00 PM 118 mmHg 78 mmHg 78 bpm 18 rpm 99.3 F 218.25 lbs 61 in 41.24 kg/m2 2.06 m2 97 % Social History Name Description Comments Tobacco Former smoker Alcohol Use - Occasional History of Procedures Not available. Results Summary Date and Description Results 04/12/2010 3:20 PM GLUCOSE 102.0 mg/dLSODIUM 136.0 mmol/LPOTASSIUM 3.30 mmol/ LCHLORIDE 104.0 mmol/LCO2 21.0 mmol/LBUN 5.0 mg/dLCREATININE 0.50 mg/dLSGOT/AST 9.0 IU/LSGPT/ALT 7.0 IU/LALK PHOS 74.0 IU/LTOTAL PROTEIN 6.50 g/dLALBUMIN 3.40 g /dLTOTAL BILI 0.90 mg/dLCALCIUM 8.70 mg/dLAGE 35 GFR NonAA 139 GFR AA 168 eGFR > 60 mL/min/1.73 m2eGFR AA* >60 WBC 7.6 RBC 3.70 HGB 10.80 g/dLHCT 32.50 %MCV 88.0 fLMCH 29.20 pgMCHC 33.20 g/dLRDW SD 43 RDW CV 13.40 %MPV 10.60 fLPLT 179 NRBC# 0.00 NRBC% 0.0 %NEUT 73.60 %%LYMP 19.60 %%MONO 5.80 %%EOS 0.90 %%BASO 0.10 %#NEUT 5.56 #LYMP 1.48 #MONO 0.44 #EOS 0.07 #BASO 0.01 MANUAL DIFF NOT IND 04/12/2010 5:34 PM COLOR YELLOW APPEARANCE CLEAR SPEC GRAV 1.015 pH 6.5 PROTEIN NEGATIVE GLUCOSE NEGATIVE KETONE NEGATIVE BILIRUBIN NEGATIVE BLOOD NEGATIVE NITRITE NEGATIVE LEUK SCREEN NEGATIVE WBC/HPF NEGATIVE RBC/HPF NEGATIVE CASTS/LPF NEGATIVE CRYSTALS NEGATIVE MUCOUS THRDS NEGATIVE BACTERIA NEGATIVE EPITH CELLS FEW SQUAMOUS TRICHOMONAS NEGATIVE YEAST NEGATIVE CULT SET UP? NO 04/09/2016 6:45 AM FIBRONECTIN POSITIVE 04/09/2016 7:07 AM GLUCOSE POCT 117.0 mg/dL History Of Immunizations Not available. History of Past Illness Name Date of Onset Comments Hypertension Gestational Diabetes Otitis externa in other diseases classified elsewhere, unspecified ear Aug 31 2016 6:06PM Right Superficial mycosis, unspecified Aug 31 2016 6:06PM Payers Insurance Name Company Name Plan Name Plan Number Policy Number Policy Group Number Start Date [facility] Plan of [id number] N/A [facility] [id number] N/A History of Encounters Visit Date Visit Type Provider 08/31/2016 Office visit Colleen Garduno SAUSAGE WRAPPER 04/09/2016 [facility] [place] DO 03/31/2009 Surgery Cassius Velasquez MD 03/26/2009 Office visit Cassius Velasquez MD 03/11/2009 [facility] Cassius Velasquez MD 02/26/2009 Office visit Cassius Velasquez MD 01/29/2009 Office visit Rubin Higgins MD 01/07/2009 Office visit Rubin Higgins MD
--- OUTSIDE RECORDS SUMMARY | 2018-06-07 12:39 | XMS REPORT ---
Author Author ELIJAH THAYER [facility] Address [address] [place] [address] Care Team Providers Care Yeast Tender Name Role Phone ELIJAH THAYER Unavailable PROBLEMS Type Condition ICD9-CM Code [id number] Code Onset Dates Condition Status SNOMED Code Problem Cough 786.2 Active 26773314 ALLERGIES Substance Reaction Event Type Date Status A TYPE OF BP MEDICATION, CAN NOT REMEMBER THE NAME Unknown Non Drug Allergy Jan, Active ENCOUNTERS Encounter Location Date Diagnosis [facility] [id number] [place] [address] Jan Benign paroxysmal positional vertigo due to bilateral vestibular disorder H81.13 ; Fluid level behind tympanic membrane of both ears H65.93 and BMI 40.0-44.9, adult Z68.41 [facility] [id number] [place] [phone] Jul, Dental examination Z01.20 and Carious teeth K02.9 [facility] [id number] [place] [phone] Jun, Encounter for dental examination and cleaning without abnormal findings Z01.20 [facility] [id number] [place] [phone] May, Dental examination Z01.20 [facility] [place] [id number] [place] [address] Aug, [facility] [place] [id number] [place] [phone] Aug, [facility] [place] [id number] [place] [phone] Jun, [facility] [place] [id number] [place] [phone] Jun, [facility] [place] [address] [facility] [id number] [place] [address] Jun, [facility] [place] [address] [facility] [id number] [address] Jun, [facility] [place] [address] [facility] [id number] [place] [address] Jul, IMMUNIZATIONS No Known Immunizations SOCIAL HISTORY Never Assessed REASON FOR VISIT Ear pain-Patient states she is having some right ear pain but irritation in the left, nausea, dizziness, states she has tried zofran but it isn't helping, this has been ongoing x2 days. Felicia RN PLAN OF CARE Activity Details Follow Up prn Reason: VITAL SIGNS Height 61 in 2018-01-26 Weight 229 lbs 2018-01-26 Temperature 98.8 degrees Fahrenheit 2018-01-26 Heart Rate 89 bpm 2018-01-26 Respiratory Rate 18 2018-01-26 Oximetry 96 % 2018-01-26 BMI 43.26 kg/m2 2018-01-26 Blood pressure systolic 130 mmHg 2018-01-26 Blood pressure diastolic 86 mmHg 2018-01-26 MEDICATIONS Medication Instructions Dosage Frequency Start Date End Date Duration Status Ondansetron HCl 4 MG Orally every 8 hours, PRN 1 tablet Jan, 10 days Active MethylPREDNISolone 4 MG Orally as directed as directed Jan, Jan, 6 days Active Flonase 50 mcg/act Nasally Once a day 1 spray in each nostril 24h Jan, 30 day(s) Active Meclizine HCl 25 MG Orally twice a day 1 tablet as needed 12h Jan, 14 days Active RESULTS No Results PROCEDURES No Known procedures INSTRUCTIONS MEDICATIONS ADMINISTERED No Known Medications MEDICAL (GENERAL) HISTORY Type Description Date Medical History high blood pressure Medical History 34 WEEKS , C SECTION-July Surgical History x5 Surgical History cholecystectomy 2000 Hospitalization History labor Hospitalization History surgeries
--- OUTSIDE RECORDS SUMMARY | 2018-06-07 12:39 | XMS REPORT ---
Author Author NIGEL Tobin [facility] Address Unknown Care Team Providers Care Hat Brusher Machine Name Role Phone NIGEL Tobin Unavailable PROBLEMS Type Condition ICD9-CM Code [id number] Code Onset Dates Condition Status SNOMED Code Problem Cough 786.2 Active 78708317 ALLERGIES Substance Reaction Event Type Date Status N.K.D.A. Unknown Non Drug Allergy May, Unknown SOCIAL HISTORY No smoking Hx information available PLAN OF CARE Activity Details Follow Up prn Reason:te/prophy VITAL SIGNS Height 61 in 2016-06-07 Blood pressure systolic 120 mmHg 2016-06-07 Blood pressure diastolic 61 mmHg 2016-06-07 MEDICATIONS Medication Instructions Dosage Frequency Start Date End Date Duration Status Procardia 10 MG Orally Three times a day 1 capsule 8h Active Amoxicillin 500 MG Orally 4 times a day 1 capsule 6h May, Jun, 7 day(s) Active RESULTS No Results PROCEDURES Procedure Date Ordered Related Diagnosis Body Site LTD ORAL EVALUATION - PROBLEM FOCUS Jun 07, 2016 INTRAORL-PERIAPICAL 1 FILM [id number] Jun 07, 2016 IMMUNIZATIONS No Known Immunizations
--- OUTSIDE RECORDS SUMMARY | 2018-06-07 12:39 | XMS REPORT ---
Author Sunil Smith [facility] Address [address] [place], [place] [address] Care Team Providers Care Optical Effects Camera Operator Name Role Phone Sunil Peña PCP Allergies and Adverse Reactions Name Reaction Notes Norvasc Itching Plan of Treatment Not available. Medications Active Name Start Date Estimated Completion Date SIG Comments 28-800 mg-mcg oral tablet take 1 tablet by oral route daily iron 325 mg (65 mg iron) oral tablet take 1 tablet (325 mg) by oral route once daily Keflex 500 mg oral capsule 05/13/2017 take 1 capsule (500 mg) by oral route 4 times per day for 7 days Name Start Date Expiration Date SIG Comments Ciprodex 0.3-0.1 % otic drops,suspension 08/31/2016 09/07/2016 instill 4 drops into right ear by otic route 2 times per day for 7 days Discontinued Name Start Date Discontinued Date SIG Comments nifedipine 60 mg oral tablet extended release 03/02/2017 take 1 tablet ( 60 mg) by oral route once daily Problem List Not available. Vital Signs Date Time BP-Sys(mm[Hg] BP-Deepti(mm[Hg]) HR(bpm) RR(rpm) Temp WT HT HC BMI BSA BMI Percentile O2 Sat(%) 05/13/2017 11:40:00 AM 126 mmHg 74 mmHg 95 bpm 18 rpm 99.4 F 239 lbs 61 in 45.16 kg/m2 2.16 m2 98 % 03/02/2017 11:15:00 AM 124 mmHg 88 mmHg 79 bpm 18 rpm 98.1 F 234 lbs 61 in 44.2135 kg/m 2.1373 m 98 % 08/31/2016 5:54:00 PM 118 mmHg 78 mmHg 78 bpm 18 rpm 99.3 F 218.25 lbs 61 in 41.24 kg/m2 2.06 m2 97 % Social History Name Description Comments Tobacco Former smoker Alcohol Use - Occasional History of Procedures Not available. Results Summary Not available. History Of Immunizations Not available. History of Past Illness Name Date of Onset Comments Hypertension Gestational Diabetes Otitis externa in other diseases classified elsewhere, unspecified ear Aug 31 2016 6:06PM Right Superficial mycosis, unspecified Aug 31 2016 6:06PM Well adult exam Mar 02 2017 11:17AM Mastitis, left, acute May 13 2017 11:43AM Payers Insurance Name Company Name Plan Name Plan Number Policy Number Policy Group Number Start Date [facility] [id number] N/A [facility] Plan of [id number] N/A History of Encounters Visit Date Visit Type Provider 05/13/2017 Office visit Sunil Peña MARKETING AUTOMATION MANAGER 03/02/2017 Office visit Colleen Garduno MARKETING AUTOMATION MANAGER 08/31/2016 Office visit Colleen Garduno MARKETING AUTOMATION MANAGER 04/09/2016 [facility] [place] 03/31/2009 Surgery Cassius Velasquez MD 03/26/2009 Office visit Cassius Velasquez MD 03/11/2009 Hospital Cassius Velasquez MD 02/26/2009 Office visit Cassius Velasquez MD 01/29/2009 Office visit Rubin Higgins MD 01/07/2009 Office visit Rubin Higgins MD
--- OUTSIDE RECORDS SUMMARY | 2018-06-07 12:39 | XMS REPORT ---
Author Author DIOGO TAYLOR Organization [facility] Address [address] [place] [address] Phone Unavailable Care Team Providers Care Gis Web Developer Name Role Phone DIOGO TAYLOR Unavailable Unavailable PROBLEMS Type Condition ICD9-CM Code [id number] Code Onset Dates Condition Status SNOMED Code Problem Cough 786.2 Active 69217201 ALLERGIES Substance Reaction Event Type Date Status A TYPE OF BP MEDICATION, CAN NOT REMEMBER THE NAME Unknown Non Drug Allergy Jun, Active SOCIAL HISTORY No smoking Hx information available PLAN OF CARE Activity Details Follow Up PATIENT HAS APPOINTMENT WITH DR MORALEZ Reason:EXTRACTION #29 AND FAVIAN 9RADIOGRAPHS HAVE BEEN TAKEN) VITAL SIGNS MEDICATIONS Medication Instructions Dosage Frequency Start Date End Date Duration Status Procardia 10 MG Orally Three times a day 1 capsule 8h Active RESULTS No Results PROCEDURES Procedure Date Ordered Related Diagnosis Body Site INTRAORL-PERIAPICAL 1 FILM 56941 Jun 10, 2016 INTRAORL-PERIAPICAL EA ADD FILM Jun 10, 2016 INTRAORL-PERIAPICAL EA ADD FILM Jun 10, 2016 INTRAORL-PERIAPICAL EA ADD FILM Jun 10, 2016 PROPHYLAXIS - ADULT Jun 10, 2016 BITEWINGS - FOUR FILMS Jun 10, 2016 IMMUNIZATIONS No Known Immunizations
--- OUTSIDE RECORDS SUMMARY | 2018-06-07 12:39 | XMS REPORT ---
Author Author Colleen Garduno [facility] Address [address] [place], [place] [address] Care Team Providers Care Public Health Microbiologist Name Role Phone Colleen Garduno PCP Unavailable Allergies and Adverse Reactions Name Reaction Notes Norvas Itching Plan of Treatment Not available. Medications [...] HC BMI BSA BMI Percentile O2 Sat(%) 03/02/2017 11:15:00 AM 124 mmHg 88 mmHg 79 bpm 18 rpm 98.1 F 234 lbs 61 in 44.21 kg/m2 2.14 m2 98 % 08/31/2016 5:54:00 PM 118 mmHg 78 mmHg 78 bpm 18 rpm 99.3 F 218.25 lbs 61 in 41.2376 kg/m 2.0642 m 97 % Social History Name Description Comments [...] Well adult exam Mar 02 2017 11:17AM Payers Insurance Name Company Name Plan Name Plan Number Policy Number Policy Group Number Start Date [facility] [id number] N/A [facility] Plan of [id number] N/A History of Encounters Visit Date Visit Type Provider 03/02/2017 Office visit Colleen Garduno HEALTH NURSE 08/31/2016 Office visit Colleen Garduno HEALTH NURSE 04/09/2016 [facility] [place] DO 03/31/2009 Surgery Cassius Velasquez MD 03/26/2009 Office visit Cassius Velasquez MD 03/11/2009 [facility] Cassius Velasquez MD 02/26/2009 Office visit Cassius Velasquez MD 01/29/2009 Office visit Rubin Higgins MD 01/07/2009 Office visit Rubin Higgins MD
--- OUTSIDE RECORDS SUMMARY | 2018-06-07 12:40 | XMS REPORT | Continuity of Care Document ---
Author Author [facility] Organization [facility] Address Unknown Phone Unavailable Allergies Active Description Code Type Severity Reaction Onset Reported/Identified Relationship to Patient Clinical Status Yes No Known Drug Allergies [id number] N/A N/A Yes amlodipine [id number] Drug Allergy Unknown scalp crawling 06/14/2016 Yes amlodipine [id number] Drug Allergy Mild scalp crawling 06/04/2018 Medications There is no data. 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 06/27/2016 TEMO JUAN DO Ot O10.913 UNSP PRE-EXISTING HTN COMP , 06/27/2016 TEMO JUAN DO Ot O34.219 MATERNAL CARE FOR UNSP TYPE SCAR FROM PA 06/27/2016 TEMO JUAN DO Ot O47.03 FALSE LABOR BEFORE 37 COMPLETED WEEKS OF 06/27/2016 TEMO JUAN DO Ot Z3A.36 36 WEEKS GESTATION OF 06/27/2016 TEMO JUAN DO Ot 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 06/27/2016 TEMO JUAN DO Ot O10.913 UNSP PRE-EXISTING HTN COMP , 06/27/2016 TEMO JUAN DO, Ot O34.219 MATERNAL CARE FOR UNSP TYPE SCAR FROM PA 06/27/2016 TEMO JUAN DO, Ot O47.03 FALSE LABOR BEFORE 37 COMPLETED WEEKS OF 06/27/2016 TEMO JUAN DO, Ot Z3A.36 36 WEEKS GESTATION OF 07/01/2016 TEMO JUAN DO, Ot 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 07/01/2016 TEMO JUAN DO, Ot O10.913 UNSP PRE-EXISTING HTN COMP , 07/01/2016 TEMO JUAN DO, Ot O34.219 MATERNAL CARE FOR UNSP TYPE SCAR FROM PA 07/01/2016 TEMO JUAN DO, Ot O47.03 FALSE LABOR BEFORE 37 COMPLETED WEEKS OF 07/01/2016 TEMO JUAN DO, Ot Z3A.36 36 WEEKS GESTATION OF 07/06/2016 TEMO JUAN DO, Ot 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 07/06/2016 TEMO JUAN DO, Ot O10.913 UNSP PRE-EXISTING HTN COMP , 07/06/2016 TEMO JUAN DO, Ot O34.219 MATERNAL CARE FOR UNSP TYPE SCAR FROM PA 07/06/2016 TEMO JUAN DO, Ot O47.03 FALSE LABOR BEFORE 37 COMPLETED WEEKS OF 07/06/2016 TEMO JUAN DO, Ot Z3A.36 36 WEEKS GESTATION OF 07/07/2016 TEMO JUAN DO, Ot E66.01 MORBID (SEVERE) OBESITY DUE TO EXCESS CA 07/07/2016 TEMO JUAN DO, Ot 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 07/07/2016 TEMO JUAN DO, Ot O10.92 UNSP PRE-EXISTING HYPERTENSION COMPLICAT 07/07/2016 TEMO JUAN DO Ot 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 07/07/2016 TEMO JUAN DO, Ot O34.211 MATERN CARE FOR LOW TRANSVERSE SCAR FROM 07/07/2016 TEMO JUAN DO, Ot O99.214 OBESITY COMPLICATING CHILDBIRTH 07/07/2016 TEMO JUAN DO Ot Z23 ENCOUNTER FOR IMMUNIZATION 07/07/2016 TEMO JUAN DO Ot Z37.0 SINGLE LIVE 07/07/2016 TEMO JUAN DO, Ot Z3A.37 37 WEEKS GESTATION OF 07/07/2016 TEMO JUAN DO Ot Z68.41 BODY MASS INDEX (BMI) 40.0-44.9, ADULT 03/22/2018 TEMO JUAN DO Ot K43.9 VENTRAL HERNIA WITHOUT OBSTRUCTION OR GA 03/22/2018 YESSICA MORRISSEY TEMO Farfan Ot K76.0 FATTY (CHANGE OF) LIVER, NOT ELSEWHERE C 03/22/2018 YESSICA MORRISSEY TEMO Farfan Ot N92.1 EXCESSIVE AND FREQUENT MENSTRUATION WITH 03/22/2018 YESSICA MORRISSEY TEMO Naheed Ot Z12.31 ENCNTR SCREEN MAMMOGRAM FOR MALIGNANT NE 03/23/2018 MARTINA MORRISSEY AIXA K Ot E66.9 OBESITY, UNSPECIFIED 03/23/2018 MARTINA MORRISSEY AIXA K Ot K46.9 UNSPECIFIED ABDOMINAL HERNIA WITHOUT OBS 03/23/2018 MARTINA MORRISSEYAIXA Ot N39.0 URINARY TRACT INFECTION, SITE NOT SPECIF 03/23/2018 MARTINA DOAIXA Ot R10.30 LOWER ABDOMINAL PAIN, UNSPECIFIED 03/23/2018 MARTINA MORRISSEYNASIRA Chance Ot Z68.41 BODY MASS INDEX (BMI) 40.0-44.9, ADULT 03/23/2018 MARTINA MORRISSEY AIXA K Ot Z87.19 PERSONAL HISTORY OF OTHER DISEASES OF TH 03/23/2018 AIXA MACK DO Ot Z87.891 PERSONAL HISTORY OF NICOTINE DEPENDENCE 03/23/2018 MARTINA AIXA MORRISSEY Ot Z88.8 ALLERGY STATUS TO OTH DRUG/MEDS/BIOL SUB 03/23/2018 MARTINAAIXA Valencia DO Ot Z98.51 TUBAL LIGATION STATUS 03/23/2018 MARTINA AIXA MORRISSEY Ot Z98.890 OTHER SPECIFIED POSTPROCEDURAL STATES 03/23/2018 YESSICA MORRISSEY TEMO Farfan Ot K43.9 VENTRAL HERNIA WITHOUT OBSTRUCTION OR GA 03/23/2018 YESSICA MORRISSEY TEMO Farfan Ot K76.0 FATTY (CHANGE OF) LIVER, NOT ELSEWHERE C 03/23/2018 YESSICA MORRISSEYTEMO Ot N92.1 EXCESSIVE AND FREQUENT MENSTRUATION WITH 03/23/2018 YESSCIA MORRISSEYTEMO Ot R19.00 INTRA-ABD AND PELVIC SWELLING, MASS AND 03/23/2018 YESSICA MORRISSEYTEMO Ot Z12.31 ENCNTR SCREEN MAMMOGRAM FOR MALIGNANT NE 03/26/2018 AIXA MACK DO Ot E66.9 OBESITY, UNSPECIFIED 03/26/2018 AIXA MACK DO Ot K46.9 UNSPECIFIED ABDOMINAL HERNIA WITHOUT OBS 03/26/2018 AIXA MACK DO Ot N39.0 URINARY TRACT INFECTION, SITE NOT SPECIF 03/26/2018 AIXA MACK DO Ot R10.30 LOWER ABDOMINAL PAIN, UNSPECIFIED 03/26/2018 AIXA MACK DO Ot Z68.41 BODY MASS INDEX (BMI) 40.0-44.9, ADULT 03/26/2018 AIXA MACK DO Ot Z87.19 PERSONAL HISTORY OF OTHER DISEASES OF TH 03/26/2018 AIXA MACK DO Ot Z87.891 PERSONAL HISTORY OF NICOTINE DEPENDENCE 03/26/2018 AIXA MACK DO Ot Z88.8 ALLERGY STATUS TO OTH DRUG/MEDS/BIOL SUB 03/26/2018 AIXA MACK DO Ot Z98.51 TUBAL LIGATION STATUS 03/26/2018 AIXA MACK DO Ot Z98.890 OTHER SPECIFIED POSTPROCEDURAL STATES 03/27/2018 TEMO JUAN DO S Ot K43.9 VENTRAL HERNIA WITHOUT OBSTRUCTION OR GA 03/27/2018 FENECH DOTEMO S Ot K76.0 FATTY (CHANGE OF) LIVER, NOT ELSEWHERE C 03/27/2018 FENECH DO, TEMO S Ot N92.1 EXCESSIVE AND FREQUENT MENSTRUATION WITH 03/27/2018 FENECH DO, TEMO S Ot R19.00 INTRA-ABD AND PELVIC SWELLING, MASS AND 03/27/2018 FENBENOIT DO TEMO S Ot Z12.31 ENCNTR SCREEN MAMMOGRAM FOR MALIGNANT NE 03/27/2018 FENBENOIT MORRISSEY TEMO S Ot K43.9 VENTRAL HERNIA WITHOUT OBSTRUCTION OR GA 03/27/2018 FENECH DO, TEMO S Ot K76.0 FATTY (CHANGE OF) LIVER, NOT ELSEWHERE C 03/27/2018 FENECH DO, TEMO S Ot N92.1 EXCESSIVE AND FREQUENT MENSTRUATION WITH 03/27/2018 FENECH DO, TEMO S Ot R19.00 INTRA-ABD AND PELVIC SWELLING, MASS AND 03/27/2018 FENECH DO TEMO S Ot Z12.31 ENCNTR SCREEN MAMMOGRAM FOR MALIGNANT NE 04/05/2018 HARISH, JOSELUIS E PEACE OFFICER Ot J30.9 ALLERGIC RHINITIS, UNSPECIFIED 04/05/2018 JOSELUIS MOREIRA PEACE OFFICER Ot R91.1 SOLITARY PULMONARY NODULE 04/05/2018 JOSELUIS MOREIRA PEACE OFFICER Ot Z87.891 PERSONAL HISTORY OF NICOTINE DEPENDENCE 04/06/2018 YESSICA MORRISSEY, TEMO S Ot K43.9 VENTRAL HERNIA WITHOUT OBSTRUCTION OR GA 04/06/2018 FENBENOIT MORRISSEY, TEMO S Ot K76.0 FATTY (CHANGE OF) LIVER, NOT ELSEWHERE C 04/06/2018 FENBENOIT MORRISSEY, TEMO S Ot N92.1 EXCESSIVE AND FREQUENT MENSTRUATION WITH 04/06/2018 FENECH , TEMO S Ot R19.00 INTRA-ABD AND PELVIC SWELLING, MASS AND 04/06/2018 FENECH DO, TEMO S Ot Z12.31 ENCNTR SCREEN MAMMOGRAM FOR MALIGNANT NE 04/09/2018 JOSELUIS MOREIRA PEACE OFFICER Ot G47.10 HYPERSOMNIA, UNSPECIFIED 04/09/2018 JOSELUIS MOREIRA PEACE OFFICER Ot G47.10 HYPERSOMNIA, UNSPECIFIED 04/23/2018 JOSELUIS MOREIRA PEACE OFFICER Ot J30.9 ALLERGIC RHINITIS, UNSPECIFIED 04/23/2018 JOSELUIS MOREIRA PEACE OFFICER Ot R91.1 SOLITARY PULMONARY NODULE 04/23/2018 JOSELUIS MOREIRA PEACE OFFICER Ot Z87.891 PERSONAL HISTORY OF NICOTINE DEPENDENCE 05/24/2018 JOSELUIS MOREIRA PEACE OFFICER Ot J30.9 ALLERGIC RHINITIS, UNSPECIFIED 05/24/2018 JOSELUIS MOREIRA PEACE OFFICER Ot R05 COUGH 05/24/2018 JOSELUIS MOREIRA PEACE OFFICER Ot R06.00 DYSPNEA, UNSPECIFIED 05/24/2018 JOSELUIS MOREIRA PEACE OFFICER Ot R91.8 OTHER NONSPECIFIC ABNORMAL FINDING OF DWAIN 05/24/2018 JOSELUIS MOREIRA PEACE OFFICER Ot Z87.891 PERSONAL HISTORY OF NICOTINE DEPENDENCE 05/27/2018 JOSELUIS MOREIRA PEACE OFFICER Ot J30.9 ALLERGIC RHINITIS, UNSPECIFIED 05/27/2018 JOSELUIS MOREIRA PEACE OFFICER Ot R05 COUGH 05/27/2018 JOSELUIS MOREIRA PEACE OFFICER Ot R06.00 DYSPNEA, UNSPECIFIED 05/27/2018 JONATHON MOREIRAINE Bernice PEACE OFFICER Ot R91.8 OTHER NONSPECIFIC ABNORMAL FINDING OF DWAIN 05/27/2018 JOSELUIS MOREIRA PEACE OFFICER Ot Z87.891 PERSONAL HISTORY OF NICOTINE DEPENDENCE 06/06/2018 TRENT AVILEZ DO Ot Z01.818 ENCOUNTER FOR OTHER PREPROCEDURAL EXAMIN 06/06/2018 TRENT AVILEZ DO Ot Z01.818 ENCOUNTER FOR OTHER PREPROCEDURAL EXAMIN Procedures Code Description [place] [address] URINE TEST (IN- HOUSE) 07/30/2012 [id number] EXTRACTION OF POC, LOW CERVICAL, OPEN AP 07/05/2016 Results Test Result Range Complete blood count (CBC) with automated white blood cell (WBC) differential - 06/14/16 19:44 Blood leukocytes automated count (number/volume) 7.5 10*3/uL 4.3-11.0 Blood erythrocytes automated count (number/volume) 3.64 10*6/uL 4.35-5.85 Venous blood hemoglobin measurement (mass/volume) 10.5 g/dL 11.5-16.0 Blood hematocrit (volume fraction) 31 % 35-52 Automated erythrocyte mean corpuscular volume 85 [foz_us] 80-99 Automated erythrocyte mean corpuscular hemoglobin (mass per erythrocyte) 29 pg 25-34 Automated erythrocyte mean corpuscular hemoglobin concentration measurement ( mass/volume) 34 g/dL 32-36 Automated erythrocyte distribution width ratio 13.6 % 10.0-14.5 Automated blood platelet count (count/volume) 184 10*3/uL 130-400 Automated blood platelet mean volume measurement 10.8 [foz_us] 7.4-10.4 Automated blood neutrophils/100 leukocytes 69 % 42-75 Automated blood lymphocytes/100 leukocytes 23 % 12-44 Blood monocytes/100 leukocytes 8 % 0-12 Automated blood eosinophils/100 leukocytes 1 % 0-10 Automated blood basophils/100 leukocytes 0 % 0-10 Blood neutrophils automated count (number/volume) 5.1 10*3 1.8-7.8 Blood lymphocytes automated count (number/volume) 1.7 10*3 1.0-4.0 Blood monocytes automated count (number/volume) 0.6 10*3 0.0-1.0 Automated eosinophil count 0.1 10*3/uL 0.0-0.3 Automated blood basophil count (count/volume) 0.0 10*3/uL 0.0-0.1 Comprehensive metabolic panel - 06/14/16 19:44 Serum or plasma sodium measurement (moles/volume) 137 mmol/L 135-145 Serum or plasma potassium measurement (moles/volume) 3.4 mmol/L 3.6-5.0 Serum or plasma chloride measurement (moles/volume) 106 mmol/L 98-107 Carbon dioxide 21 mmol/L 21-32 Serum or plasma anion gap determination (moles/volume) 10 mmol/L 5-14 Serum or plasma urea nitrogen measurement (mass/volume) 6 mg/dL 7-18 Serum or plasma creatinine measurement (mass/volume) 0.58 mg/dL 0.60-1.30 Serum or plasma urea nitrogen/creatinine mass ratio 10 NRG Serum or plasma creatinine measurement with calculation of estimated glomerular filtration rate > NRG Serum or plasma glucose measurement (mass/volume) 81 mg/dL 70-105 Serum or plasma calcium measurement (mass/volume) 9.2 mg/dL 8.5-10.1 Serum or plasma total bilirubin measurement (mass/volume) 1.3 mg/dL 0.1-1.0 Serum or plasma alkaline phosphatase measurement (enzymatic activity/volume) 81 U/L 40-136 Serum or plasma aspartate aminotransferase measurement (enzymatic activity/ volume) 11 U/L 5-34 Serum or plasma alanine aminotransferase measurement (enzymatic activity/volume ) 8 U/L 0-55 Serum or plasma protein measurement (mass/volume) 6.3 g/dL 6.4-8.2 Serum or plasma albumin measurement (mass/volume) 3.4 g/dL 3.2-4.5 Serum or plasma uric acid measurement (mass/volume) - 06/14/16 19:44 Serum or plasma uric acid measurement (mass/volume) 5.0 mg/dL 2.6-7.2 Lactate dehydrogenase 1 [enzymatic activity/volume] in serum or plasma - 19:44 Lactate dehydrogenase 1 [enzymatic activity/volume] in serum or plasma 112 U/L 125-220 Complete urinalysis with reflex to culture - 06/26/16 20:40 Urine color determination YELLOW NRG Urine clarity determination CLEAR NRG Urine pH measurement by test strip 6.5 5-9 Specific gravity of urine by test strip 1.015 1.016- 1.022 Urine protein assay by test strip, semi-quantitative 1+ NEGATIVE Urine glucose detection by automated test strip NEGATIVE NEGATIVE Erythrocytes detection in urine sediment by light microscopy NEGATIVE NEGATIVE Urine ketones detection by automated test strip NEGATIVE NEGATIVE Urine nitrite detection by test strip NEGATIVE NEGATIVE Urine total bilirubin detection by test strip NEGATIVE NEGATIVE Urine urobilinogen measurement by automated test strip (mass/volume) NORMAL NORMAL Urine leukocyte esterase detection by dipstick 1+ NEGATIVE Automated urine sediment erythrocyte count by microscopy (number/high power field) NONE NRG Automated urine sediment leukocyte count by microscopy (number/high power field ) [HPF] NRG Bacteria detection in urine sediment by light microscopy TRACE NRG Squamous epithelial cells detection in urine sediment by light microscopy 0-2 NRG Crystals detection in urine sediment by light microscopy NONE NRG Casts detection in urine sediment by light microscopy NONE NRG Mucus detection in urine sediment by light microscopy NEGATIVE NRG Complete urinalysis with reflex to culture NO NRG Urine protein/creatinine mass ratio - 06/26/16 20:40 Urine protein measurement (mass/volume) 11 mg/dL 6-12 Urine creatinine measurement (mass/volume) 82 mg/dL 30- 125 Urine protein/creatinine mass ratio 0.13 NRG Complete blood count (CBC) with automated white blood cell (WBC) differential - 06/27/16 08:52 Blood leukocytes automated count (number/volume) 7.0 10*3/uL 4.3-11.0 Blood erythrocytes automated count (number/volume) 3.35 10*6/uL 4.35-5.85 Venous blood hemoglobin measurement (mass/volume) 9.6 g/dL 11.5-16.0 Blood hematocrit (volume fraction) 29 % 35-52 Automated erythrocyte mean corpuscular volume 86 [foz_us] 80-99 Automated erythrocyte mean corpuscular hemoglobin (mass per erythrocyte) 29 pg 25-34 Automated erythrocyte mean corpuscular hemoglobin concentration measurement ( mass/volume) 33 g/dL 32-36 Automated erythrocyte distribution width ratio 14.3 % 10.0-14.5 Automated blood platelet count (count/volume) 160 10*3/uL 130-400 Automated blood platelet mean volume measurement 11.3 [foz_us] 7.4-10.4 Automated blood neutrophils/100 leukocytes 73 % 42-75 Automated blood lymphocytes/100 leukocytes 19 % 12-44 Blood monocytes/100 leukocytes 7 % 0-12 Automated blood eosinophils/100 leukocytes 1 % 0-10 Automated blood basophils/100 leukocytes 0 % 0-10 Blood neutrophils automated count (number/volume) 5.1 10*3 1.8-7.8 Blood lymphocytes automated count (number/volume) 1.3 10*3 1.0-4.0 Blood monocytes automated count (number/volume) 0.5 10*3 0.0-1.0 Automated eosinophil count 0.0 10*3/uL 0.0-0.3 Automated blood basophil count (count/volume) 0.0 10*3/uL 0.0-0.1 Comprehensive metabolic panel - 06/27/16 08:52 Serum or plasma sodium measurement (moles/volume) 138 mmol/L 135-145 Serum or plasma potassium measurement (moles/volume) 3.5 mmol/L 3.6-5.0 Serum or plasma chloride measurement (moles/volume) 110 mmol/L 98-107 Carbon dioxide 18 mmol/L 21-32 Serum or plasma anion gap determination (moles/volume) 10 mmol/L 5-14 Serum or plasma urea nitrogen measurement (mass/volume) 4 mg/dL 7-18 Serum or plasma creatinine measurement (mass/volume) 0.51 mg/dL 0.60-1.30 Serum or plasma urea nitrogen/creatinine mass ratio 8 NRG Serum or plasma creatinine measurement with calculation of estimated glomerular filtration rate > NRG Serum or plasma glucose measurement (mass/volume) 78 mg/dL 70-105 Serum or plasma calcium measurement (mass/volume) 7.9 mg/dL 8.5-10.1 Serum or plasma total bilirubin measurement (mass/volume) 1.1 mg/dL 0.1-1.0 Serum or plasma alkaline phosphatase measurement (enzymatic activity/volume) 88 U/L 40-136 Serum or plasma aspartate aminotransferase measurement (enzymatic activity/ volume) 10 U/L 5-34 Serum or plasma alanine aminotransferase measurement (enzymatic activity/volume ) < U/L 0-55 Serum or plasma protein measurement (mass/volume) 5.5 g/dL 6.4-8.2 Serum or plasma albumin measurement (mass/volume) 2.9 g/dL 3.2-4.5 Serum or plasma uric acid measurement (mass/volume) - 06/27/16 08:52 Serum or plasma uric acid measurement (mass/volume) 5.2 mg/dL 2.6-7.2 Complete urinalysis with reflex to culture - 06/30/16 21:00 Urine color determination YELLOW NRG Urine clarity determination SLIGHTLY CLOUDY NRG Urine pH measurement by test strip 6.5 5-9 Specific gravity of urine by test strip 1.010 1.016- 1.022 Urine protein assay by test strip, semi-quantitative 1+ NEGATIVE Urine glucose detection by automated test strip NEGATIVE NEGATIVE Erythrocytes detection in urine sediment by light microscopy NEGATIVE NEGATIVE Urine ketones detection by automated test strip 3+ NEGATIVE Urine nitrite detection by test strip NEGATIVE NEGATIVE Urine total bilirubin detection by test strip NEGATIVE NEGATIVE Urine urobilinogen measurement by automated test strip (mass/volume) NORMAL NORMAL Urine leukocyte esterase detection by dipstick 3+ NEGATIVE Automated urine sediment erythrocyte count by microscopy (number/high power field) NONE NRG Automated urine sediment leukocyte count by microscopy (number/high power field ) [HPF] NRG Bacteria detection in urine sediment by light microscopy TRACE NRG Squamous epithelial cells detection in urine sediment by light microscopy 2-5 NRG Crystals detection in urine sediment by light microscopy NONE NRG Casts detection in urine sediment by light microscopy NONE NRG Mucus detection in urine sediment by light microscopy SMALL NRG Complete urinalysis with reflex to culture NO NRG Urine protein/creatinine mass ratio - 06/30/16 21:00 Urine protein measurement (mass/volume) 21 mg/dL 6-12 Urine creatinine measurement (mass/volume) 108 mg/dL 30- 125 Urine protein/creatinine mass ratio 0.19 NRG Complete blood count (CBC) with automated white blood cell (WBC) differential - 07/05/16 16:35 Blood leukocytes automated count (number/volume) 6.8 10*3/uL 4.3-11.0 Blood erythrocytes automated count (number/volume) 3.69 10*6/uL 4.35-5.85 Venous blood hemoglobin measurement (mass/volume) 10.4 g/dL 11.5-16.0 Blood hematocrit (volume fraction) 31 % 35-52 Automated erythrocyte mean corpuscular volume 84 [foz_us] 80-99 Automated erythrocyte mean corpuscular hemoglobin (mass per erythrocyte) 28 pg 25-34 Automated erythrocyte mean corpuscular hemoglobin concentration measurement ( mass/volume) 33 g/dL 32-36 Automated erythrocyte distribution width ratio 14.2 % 10.0-14.5 Automated blood platelet count (count/volume) 193 10*3/uL 130-400 Automated blood platelet mean volume measurement 11.7 [foz_us] 7.4-10.4 Automated blood neutrophils/100 leukocytes 72 % 42-75 Automated blood lymphocytes/100 leukocytes 21 % 12-44 Blood monocytes/100 leukocytes 7 % 0-12 Automated blood eosinophils/100 leukocytes 0 % 0-10 Automated blood basophils/100 leukocytes 0 % 0-10 Blood neutrophils automated count (number/volume) 4.8 10*3 1.8-7.8 Blood lymphocytes automated count (number/volume) 1.4 10*3 1.0-4.0 Blood monocytes automated count (number/volume) 0.5 10*3 0.0-1.0 Automated eosinophil count 0.0 10*3/uL 0.0-0.3 Automated blood basophil count (count/volume) 0.0 10*3/uL 0.0-0.1 Blood type T Indirect antibody screen panel - 07/05/16 16:35 ABO+Rh group ON NRG Transfusion band number [id number] [facility] Blood group antibody screen NEGATIVE [facility] Comprehensive metabolic panel - 07/05/16 16:35 Serum or plasma sodium measurement (moles/volume) 137 mmol/L 135-145 Serum or plasma potassium measurement (moles/volume) 3.3 mmol/L 3.6-5.0 Serum or plasma chloride measurement (moles/volume) 108 mmol/L 98-107 Carbon dioxide 17 mmol/L 21-32 Serum or plasma anion gap determination (moles/volume) 12 mmol/L 5-14 Serum or plasma urea nitrogen measurement (mass/volume) 6 mg/dL 7-18 Serum or plasma creatinine measurement (mass/volume) 0.57 mg/dL 0.60-1.30 Serum or plasma urea nitrogen/creatinine mass ratio 11 NRG Serum or plasma creatinine measurement with calculation of estimated glomerular filtration rate > [facility] Serum or plasma glucose measurement (mass/volume) 84 mg/dL 70-105 Serum or plasma calcium measurement (mass/volume) 8.4 mg/dL 8.5-10.1 Serum or plasma total bilirubin measurement (mass/volume) 1.1 mg/dL 0.1-1.0 Serum or plasma alkaline phosphatase measurement (enzymatic activity/volume) 110 U/L 40-136 Serum or plasma aspartate aminotransferase measurement (enzymatic activity/ volume) 14 U/L 5-34 Serum or plasma alanine aminotransferase measurement (enzymatic activity/volume ) 7 U/L 0-55 Serum or plasma protein measurement (mass/volume) 6.1 g/dL 6.4-8.2 Serum or plasma albumin measurement (mass/volume) 3.2 g/dL 3.2-4.5 Complete blood count (CBC) with automated white blood cell (WBC) differential - 07/06/16 05:22 Blood leukocytes automated count (number/volume) 8.3 10*3/uL 4.3-11.0 Blood erythrocytes automated count (number/volume) 3.27 10*6/uL 4.35-5.85 Venous blood hemoglobin measurement (mass/volume) 9.5 g/dL 11.5-16.0 Blood hematocrit (volume fraction) 28 % 35-52 Automated erythrocyte mean corpuscular volume 85 [foz_us] 80-99 Automated erythrocyte mean corpuscular hemoglobin (mass per erythrocyte) 29 pg 25-34 Automated erythrocyte mean corpuscular hemoglobin concentration measurement ( mass/volume) 34 g/dL 32-36 Automated erythrocyte distribution width ratio 14.2 % 10.0-14.5 Automated blood platelet count (count/volume) 158 10*3/uL 130-400 Automated blood platelet mean volume measurement 11.5 [foz_us] 7.4-10.4 Automated blood neutrophils/100 leukocytes 76 % 42-75 Automated blood lymphocytes/100 leukocytes 16 % 12-44 Blood monocytes/100 leukocytes 7 % 0-12 Automated blood eosinophils/100 leukocytes 1 % 0-10 Automated blood basophils/100 leukocytes 0 % 0-10 Blood neutrophils automated count (number/volume) 6.3 10*3 1.8-7.8 Blood lymphocytes automated count (number/volume) 1.3 10*3 1.0-4.0 Blood monocytes automated count (number/volume) 0.6 10*3 0.0-1.0 Automated eosinophil count 0.1 10*3/uL 0.0-0.3 Automated blood basophil count (count/volume) 0.0 10*3/uL 0.0-0.1 RH IMMUNE GLOBULIN [facility] - 07/06/16 05:22 RH IMMUNE GLOBULIN [facility] TRFSD 07/06/16 1356 NRG cell screen - 07/06/16 05:22 SCREEN LOT NUMBER [id number] [facility] Transfusion band number [id number] [facility] [id number] 300ug NRG Erythrocytes./1000 erythrocytes 08-05-16 NRG cell screen NEGATIVE NEGATIVE cell screen 08/04/18 NR Lot number [id number] NRG Capillary blood glucose measurement by glucometer (mass/volume) - 07/07/16 05: 55 Capillary blood glucose measurement by glucometer (mass/volume) 70 mg/dL 70-110 Urine beta human chorionic gonadotropin (hCG) measurement - 03/22/18 21:45 Urine beta human chorionic gonadotropin (hCG) measurement NEGATIVE NEGATIVE Complete urinalysis with reflex to culture - 03/22/18 21:45 Urine color determination YELLOW NRG Urine clarity determination CLEAR NRG Urine pH measurement by test strip 6 5-9 Specific gravity of urine by test strip 1.020 1.016- 1.022 Urine protein assay by test strip, semi-quantitative NEGATIVE NEGATIVE Urine glucose detection by automated test strip NEGATIVE NEGATIVE Erythrocytes detection in urine sediment by light microscopy 5+ NEGATIVE Urine ketones detection by automated test strip NEGATIVE NEGATIVE Urine nitrite detection by test strip NEGATIVE NEGATIVE Urine total bilirubin detection by test strip NEGATIVE NEGATIVE Urine urobilinogen measurement by automated test strip (mass/volume) NORMAL NORMAL Urine leukocyte esterase detection by dipstick 3+ NEGATIVE Automated urine sediment erythrocyte count by microscopy (number/high power field) [HPF] NRG Automated urine sediment leukocyte count by microscopy (number/high power field ) [HPF] NRG Bacteria detection in urine sediment by light microscopy FEW NRG Squamous epithelial cells detection in urine sediment by light microscopy 0-2 NRG Crystals detection in urine sediment by light microscopy NONE NRG Casts detection in urine sediment by light microscopy NONE NRG Mucus detection in urine sediment by light microscopy NEGATIVE NRG Complete urinalysis with reflex to culture YES NRG Bacterial urine culture - 03/22/18 21:45 Bacterial urine culture SEE REPORT NRG COLONY COUNT . NRG Complete blood count (CBC) with automated white blood cell (WBC) differential - 03/22/18 21:50 Blood leukocytes automated count (number/volume) 8.8 10*3/uL 4.3-11.0 Blood erythrocytes automated count (number/volume) 4.35 10*6/uL 4.35-5.85 Venous blood hemoglobin measurement (mass/volume) 9.6 g/dL 11.5-16.0 Blood hematocrit (volume fraction) 32 % 35-52 Automated erythrocyte mean corpuscular volume 73 [foz_us] 80-99 Automated erythrocyte mean corpuscular hemoglobin (mass per erythrocyte) 22 pg 25-34 Automated erythrocyte mean corpuscular hemoglobin concentration measurement ( mass/volume) 30 g/dL 32-36 Automated erythrocyte distribution width ratio 15.1 % 10.0-14.5 Automated blood platelet count (count/volume) 331 10*3/uL 130-400 Automated blood platelet mean volume measurement 10.0 [foz_us] 7.4-10.4 Automated blood neutrophils/100 leukocytes 60 % 42-75 Automated blood lymphocytes/100 leukocytes 31 % 12-44 Blood monocytes/100 leukocytes 7 % 0-12 Automated blood eosinophils/100 leukocytes 2 % 0-10 Automated blood basophils/100 leukocytes 0 % 0-10 Blood neutrophils automated count (number/volume) 5.3 10*3 1.8-7.8 Blood lymphocytes automated count (number/volume) 2.7 10*3 1.0-4.0 Blood monocytes automated count (number/volume) 0.6 10*3 0.0-1.0 Automated eosinophil count 0.1 10*3/uL 0.0-0.3 Automated blood basophil count (count/volume) 0.0 10*3/uL 0.0-0.1 Comprehensive metabolic panel - 03/22/18 21:50 Serum or plasma sodium measurement (moles/volume) 140 mmol/L 135-145 Serum or plasma potassium measurement (moles/volume) 3.3 mmol/L 3.6-5.0 Serum or plasma chloride measurement (moles/volume) 106 mmol/L 98-107 Carbon dioxide 24 mmol/L 21-32 Serum or plasma anion gap determination (moles/volume) 10 mmol/L 5-14 Serum or plasma urea nitrogen measurement (mass/volume) 8 mg/dL 7-18 Serum or plasma creatinine measurement (mass/volume) 0.71 mg/dL 0.60-1.30 Serum or plasma urea nitrogen/creatinine mass ratio 11 NRG Serum or plasma creatinine measurement with calculation of estimated glomerular filtration rate > NRG Serum or plasma glucose measurement (mass/volume) 125 mg/dL 70-105 Serum or plasma calcium measurement (mass/volume) 9.3 mg/dL 8.5-10.1 Serum or plasma total bilirubin measurement (mass/volume) 0.7 mg/dL 0.1-1.0 Serum or plasma alkaline phosphatase measurement (enzymatic activity/volume) 65 U/L 40-136 Serum or plasma aspartate aminotransferase measurement (enzymatic activity/ volume) 21 U/L 5-34 Serum or plasma alanine aminotransferase measurement (enzymatic activity/volume ) 24 U/L 0-55 Serum or plasma protein measurement (mass/volume) 7.6 g/dL 6.4-8.2 Serum or plasma albumin measurement (mass/volume) 4.5 g/dL 3.2-4.5 CALCIUM CORRECTED 8.9 mg/dL 8.5-10.1 Serum or plasma amylase measurement (enzymatic activity/volume) - 03/22/18 21: 50 Serum or plasma amylase measurement (enzymatic activity/volume) 98 U /L 25-125 Lipase - 03/22/18 21:50 Lipase 70 U/L 8-78 Capillary blood glucose measurement by glucometer (mass/volume) - 03/22/18 21: 54 Capillary blood glucose measurement by glucometer (mass/volume) 144 mg/dL 70-110 Urine beta human chorionic gonadotropin (hCG) measurement - 06/07/18 11:25 Urine beta human chorionic gonadotropin (hCG) measurement NEGATIVE NEGATIVE Complete blood count (CBC) with automated white blood cell (WBC) differential - 06/07/18 11:35 Blood leukocytes automated count (number/volume) 6.5 10*3/uL 4.3-11.0 Blood erythrocytes automated count (number/volume) 4.38 10*6/uL 4.35-5.85 Venous blood hemoglobin measurement (mass/volume) 8.9 g/dL 11.5-16.0 Blood hematocrit (volume fraction) 31 % 35-52 Automated erythrocyte mean corpuscular volume 70 [foz_us] 80-99 Automated erythrocyte mean corpuscular hemoglobin (mass per erythrocyte) 20 pg 25-34 Automated erythrocyte mean corpuscular hemoglobin concentration measurement ( mass/volume) 29 g/dL 32-36 Automated erythrocyte distribution width ratio 17.0 % 10.0-14.5 Automated blood platelet count (count/volume) 310 10*3/uL 130-400 Automated blood platelet mean volume measurement 10.5 [foz_us] 7.4-10.4 Automated blood neutrophils/100 leukocytes 68 % 42-75 Automated blood lymphocytes/100 leukocytes 24 % 12-44 Blood monocytes/100 leukocytes 7 % 0-12 Automated blood eosinophils/100 leukocytes 1 % 0-10 Automated blood basophils/100 leukocytes 0 % 0-10 Blood neutrophils automated count (number/volume) 4.4 10*3 1.8-7.8 Blood lymphocytes automated count (number/volume) 1.6 10*3 1.0-4.0 Blood monocytes automated count (number/volume) 0.5 10*3 0.0-1.0 Automated eosinophil count 0.1 10*3/uL 0.0-0.3 Automated blood basophil count (count/volume) 0.0 10*3/uL 0.0-0.1 Encounters ACCT No. Visit Date/Time Discharge Status Pt. Type Provider Facility Loc./Unit Complaint [id number] 05/13/2017 12:37:34 05/13/2017 23:59:59 CLS Outpatient Sunil Peña [id number] 03/02/2017 11:59:11 03/02/2017 23:59:59 CLS Outpatient Colleen Gardunon [id number] 08/31/2016 18:47:58 08/31/2016 23:59:59 CLS Outpatient Colleen Gardunon [id number] 04/13/2016 16:20:28 04/13/2016 23:59:59 CLS Outpatient [place] [id number] 09/25/2013 13:58:00 09/25/2013 23:59:59 CLS Outpatient MEET PETER DDS [id number] 07/30/2012 13:11:00 07/30/2012 23:59:59 CLS Outpatient [id number] 06/04/2018 05:36:00 06/04/2018 12:58:00 DIS Outpatient TRENT AVILEZ DO Via [facility] PREOP LAP VENTRAL HERNIA REP. POSS.OPEN [id number] 05/21/2018 15:09:00 05/21/2018 23:59:59 CLS Outpatient JOSELUIS MOREIRA APRN [facility] RT COUGH,DYSPNEA [id number] 04/05/2018 09:00:00 04/05/2018 23:59:59 CLS Preadmit TRENT AVILEZ DO [facility] SDC VENTRAL HERNIA [id number] 04/05/2018 14:15:00 04/05/2018 15:00:00 DIS Outpatient JOSELUIS MOREIRA APRN [facility] SLEEP HYPERSOMNIA, SUSPECTED KATTY [id number] 04/04/2018 07:49:00 04/04/2018 23:59:59 CLS Outpatient JOSELUIS MOREIRA APRN [facility] RAD COUGH,DYSPNEA [id number] 03/22/2018 20:17:00 03/23/2018 01:15:00 DIS Emergency MARTINA AIXA MORRISSEY [facility] ER ABD PAIN,DIARRHEA [id number] 03/16/2018 09:29:00 03/16/2018 23:59:59 CLS Outpatient YESSICA MORRISSEY TEMO Naheed [facility] RAD REDUCIBLE BULGE OF ABD WALL/SCREENING/METRORRHAGIA [id number] 07/05/2016 17:40:00 07/07/2016 16:00:00 DIS Inpatient TEMO JUAN DO [facility] WS [id number] 06/30/2016 20:15:00 07/01/2016 00:15:00 DIS Outpatient TEMO JUAN DO [facility] WSo HIGH BP;CONTRACTIONS [id number] 06/26/2016 20:40:00 06/27/2016 11:18:00 DIS Outpatient YESSICA DO TEMO Naheed [facility] WSo CONTRACTIONS/ PRESSURE [id number] 06/14/2016 18:24:00 06/14/2016 20:47:00 DIS Outpatient YOANA MOSLEY DO Via [facility] WSo ELEVATED BLOOD PRESSURE [id number] 07/09/2018 12:15:00 PEN Preadmit JOSELUIS MOREIRA APRN Via [facility] RAD COUGH,DYSPNEA [id number] 06/07/2018 11:18:00 ACT Outpatient TRENT AVILEZ DO Via [facility] SDC VENTRAL HERNIA [id number] 03/05/2017 14:02:39 Document Registration [id number] 03/05/2017 12:19:26 Document Registration
[2018-06-07] MEDS ORDERED: ONDANSETRON 4 MG/2 ML (SDV) Z0FRAN IV ONE (12:45)
[2018-06-07] MEDS ORDERED: FAMOTIDINE 20MG/2ML IV (PEPCID) IV ONE (12:45)
[2018-06-07] MEDS ORDERED: SCOPOLAMINE 1.5 MG (TRANSDERM-SCOP) PATCH TOP ONE (12:45)
[2018-06-07] MEDS ORDERED: SCOPOLAMINE 1.5 MG (TRANSDERM-SCOP) PATCH ONE (12:49)
[2018-06-07] MEDS ORDERED: FAMOTIDINE 20MG/2ML IV (PEPCID) ONE (12:49)
[2018-06-07] MEDS ORDERED: BUPIVACAINE 0.5% 30 ML (SENSORCAINE) VIAL ONE (12:55)
[2018-06-07] MEDS ORDERED: LIDOCAINE 1% INJ 20 ML 20 ML VIAL ONE (12:55)
[2018-06-07] MEDS ORDERED: GLYCOPYRROLATE 0.2 MG/ML (ROBINUL) 2 ML VIAL ONE (15:26)
[2018-06-07] MEDS ORDERED: NEOSTIGMINE 1 MG/ML 5 ML SYRINGE ONE (15:26)
[2018-06-07] MEDS ORDERED: KETOROLAC 30 MG/ML VIAL ONE (15:33)
--- NOTE | 2018-06-07 15:33 | Progress Note-Post Operative ---
Post-Operative Progess Note Surgeon (s)/Drawer In Stitch Bonding Machine (s) Surgeon TRENT AVILEZ DO Drawer In Stitch Bonding Machine: Dr. Siegel Pre-Operative Diagnosis VENTRAL HERNIA Post-Operative Diagnosis incarcerated ventral hernia Procedure & Operative Findings Date of Procedure 06/07/18 Procedure Performed/Findings laparoscopic incarcerated ventral hernia repair. Anesthesia Type gen Estimated Blood Loss Estimated blood loss (mL): min Specimens/Packing Specimens Removed na TRENT AVILEZ DO Jun 07, 2018 15:33
[2018-06-07] MEDS ORDERED: ACHD5005 PO (15:35)
[2018-06-07] MEDS ORDERED: DOCU-143 PO (15:35)
--- NOTE | 2018-06-07 15:37 | Discharge Inst-Simple/Standard ---
Discharge Inst-Standard Discharge Medications New, Converted or Re-Newed RX: RX on Chart Patient Instructions/Follow Up Plan of Care/Instructions/FU: 2-3 weeks Triston Activity as Tolerated: No Discharge Diet: Regular Diet Other Inst to Patient Follow up Appt: Make appointment for 2-3 weeks. Instructions: No lifting greater than 10 pounds. No strenuous activity. May shower in 24 hours, no tub bath or soaking. Use incentive spirometer at home as directed. No Smoking Skin/Wound Care: You have special glue over incisions it will fall off on its own. Symptoms to Report: Appetite Changes, Extremity Discoloration, Numbness/Tingling, Swelling Increased , Bleeding Excessive, Eyesight Changes, Pain Increased, Urine Color Change, Constipation(Persistent), Fever over 101 degree F, Pain/Pressure in chest, Urinating Difficulty, Cough Up/Vomit Blood, Heart Beat Irreg/Pounding, Pain/ Pressure in jaw, Vaginal Bleeding Increase, Cramps in feet or legs, Lightheadedness, Pain/Pressure in shoulder, Diarrhea(Persistent), Memory Changes Suddenly, Questions/Concerns, Weight gain consecutive days, Dizziness/ Fainting, Nausea/Vomiting, Shortness of Breath, Weight gain over 2 pounds If questions or concerns contact your physician Or seek help at emergency department. TRENT AVILEZ DO Jun 07, 2018 15:37
[2018-06-07] MEDS ORDERED: MEPERIDINE (DEMEROL) INJ 50 MG/ML IVP ONE (15:45)
[2018-06-07] MEDS ORDERED: HYDROmorphone 2 MG/ML VIAL (DILAUDID) IV ONE (15:45)
[2018-06-07] MEDS ORDERED: ONDANSETRON 4 MG/2 ML (SDV) Z0FRAN IVP PRN (15:45)
[2018-06-07] MEDS ORDERED: HYDROcodone/APAP 5 MG/325 MG (LORTAB) TAB PO PRN (15:45)
[2018-06-07] MEDS ORDERED: HYDROmorphone 2 MG/ML VIAL (DILAUDID) ONE (15:50)
[2018-06-07 16:45] VITALS: BP 127/42
[2018-06-07 17:15] VITALS: BP 128/58
[2018-06-07] MEDS ORDERED: PROMETHAZINE INJ 25 MG/ML (PHENERGAN) AMP ONE (17:20)
[2018-06-07] MEDS ORDERED: PROMETHAZINE INJ 25 MG/ML (PHENERGAN) AMP IVP ONE (17:30)
[2018-06-07 17:45] VITALS: BP 130/60
[2018-06-07 18:25] VITALS: BP 130/60
--- NOTE | 2018-06-08 00:56 | OPERATIVE REPORT ---
DATE OF SERVICE: 06/07/2018 PREOPERATIVE DIAGNOSIS: Ventral hernia. POSTOPERATIVE DIAGNOSIS: Incarcerated ventral hernia. PROCEDURE: Laparoscopic incarcerated ventral hernia repair using 6-inch Echo Ventralight mesh. SURGEON: Trent Goldstein DO ART EDUCATOR: Dr. Siegel, assisted in retraction, dissection and closure. ANESTHESIA: General. ESTIMATED BLOOD LOSS: Minimal. COMPLICATIONS: None. INDICATIONS: The patient is a 43-year-old female with a ventral hernia. It was continued to increase in size and has some discomfort. She understands risks and benefits and wished to proceed with procedure. Consent was signed on the chart. DESCRIPTION OF PROCEDURE: The patient was taken to the operating suite. She was prepped and draped in sterile fashion. Surgical pause was performed. Local anesthetic was infiltrated in left upper quadrant. An 11 blade was used to make a skin incision and dissection was taken down through the abdominal wall until the abdominal cavity was entered. A balloon trocar was inserted and pneumoperitoneum was achieved. Under direct visualization of the laparoscope, a 5 mm trocar was placed in the right upper quadrant and a 5 mm trocar was placed in left lower quadrant. Hernia was visualized noting omentum that was incarcerated through it. Using hook cautery and grasper, the hernia contents were taken down. Once this was taken down, 0 Vicryl sutures were used to close the defect through a stab incision in the center of the hernia defect. The pressure was then taken down and the sutures that were placed were then tied closing the defect. A 6-inch Echo Ventralight mesh was then inserted into the abdomen and grasped with the Jani-Christine and the echo balloon was then deployed and using a SecureStrap, the outer circumference was tacked. The balloon was then removed and an inner crown was made as well. There was adequate coverage of the defect. The abdomen was then desufflated. The trocars were removed. The fascia at the 12 mm trocar was then closed using 0 Vicryl in a [id number] fashion. The skin was then closed using 4-0 Monocryl in subcuticular fashion. The abdomen was then washed and dried and Skin Affix was placed over the incisions. The patient tolerated the procedure well without any complications. She was taken to recovery room in stable condition. Job ID: [id number] DocumentID: [id number] Dictated Date: 06/07/2018 16:25:41 Prop Maker Date: 06/08/2018 00:55:23 Dictated By: TRENT GOLDSTEIN DO
== END 2018-06-07 18:25 | disposition home or self-care (01) ==
LOC: SDC 11:18
PROVIDERS: ATTEND Surgery
DX: K43.6 Other and unspecified ventral hernia with obstruction, without gangrene (principal); J45.909 Unspecified asthma, uncomplicated; E66.01 Morbid (severe) obesity due to excess calories; Z68.41 Body mass index [BMI] 40.0-44.9, adult; Z79.899 Other long term (current) drug therapy
CPT/HCPCS: 36415; 84703; 85025; 87081; 94664

== ENCOUNTER 2018-06-10 19:12 | Emergency (ER) | payer MEDICAID ==
[~2018-06-10] VITALS: Ht 154.9 cm; Wt 106.6 kg
[~2018-06-10 19:12] MED LIST changes: +DOCU-143 PO
--- OUTSIDE RECORDS SUMMARY | 2018-06-10 19:22 | XMS REPORT | Continuity of Care Document ---
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, [facility] 06/27/2016 TEMO JUAN DO Ot O10.913 UNSP PRE-EXISTING HTN COMP , 06/27/2016 TEMO JUAN DO Ot O34.219 MATERNAL CARE FOR UNSP TYPE SCAR FROM AR 06/27/2016 TEMO JUAN DO Ot O47.03 FALSE LABOR BEFORE 37 COMPLETED WEEKS OF 06/27/2016 TEMO JUAN DO Ot Z3A.36 36 WEEKS GESTATION OF 06/27/2016 TEMO JUAN DO Ot 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, [facility] 06/27/2016 TEMO JUAN DO Ot O10.913 UNSP PRE-EXISTING HTN COMP , 06/27/2016 TEMO JUAN DO, Ot O34.219 MATERNAL CARE FOR UNSP TYPE SCAR FROM AR 06/27/2016 TEMO JUAN DO, Ot O47.03 FALSE LABOR BEFORE 37 COMPLETED WEEKS OF 06/27/2016 TEMO JUAN DO, Ot Z3A.36 36 WEEKS GESTATION OF 07/01/2016 TEMO JUAN DO, Ot 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, [facility] 07/01/2016 TEMO JUAN DO, Ot O10.913 UNSP PRE-EXISTING HTN COMP , 07/01/2016 TEMO JUAN DO, Ot O34.219 MATERNAL CARE FOR UNSP TYPE SCAR FROM AR 07/01/2016 TEMO JUAN DO, Ot O47.03 FALSE LABOR BEFORE 37 COMPLETED WEEKS OF 07/01/2016 TEMO JUAN DO, Ot Z3A.36 36 WEEKS GESTATION OF 07/06/2016 TEMO JUAN DO, Ot 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, [facility] 07/06/2016 TEMO JUAN DO, Ot O10.913 UNSP PRE-EXISTING HTN COMP , 07/06/2016 TEMO JUAN DO, Ot O34.219 MATERNAL CARE FOR UNSP TYPE SCAR FROM AR 07/06/2016 TEMO JUAN DO, Ot O47.03 FALSE LABOR BEFORE 37 COMPLETED WEEKS OF 07/06/2016 TEMO JUAN DO, Ot Z3A.36 36 WEEKS GESTATION OF 07/07/2016 TEMO JUAN DO, Ot E66.01 MORBID (SEVERE) OBESITY DUE TO EXCESS CA 07/07/2016 TEMO JUAN DO, Ot 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, [facility] 07/07/2016 TEMO JUAN DO, Ot O10.92 UNSP [...] N92.1 EXCESSIVE AND FREQUENT MENSTRUATION WITH 03/23/2018 YESSICA MORRISSEYTEMO Ot R19.00 INTRA-ABD AND PELVIC SWELLING, [...] FOR MALIGNANT NE 04/05/2018 HARISH, JOSELUIS E CLOTH COVERED HELMET PULLER Ot J30.9 ALLERGIC RHINITIS, UNSPECIFIED 04/05/2018 JOSELUIS MOREIRA CLOTH COVERED HELMET PULLER Ot R91.1 SOLITARY PULMONARY NODULE 04/05/2018 JOSELUIS MOREIRA CLOTH COVERED HELMET PULLER Ot Z87.891 PERSONAL HISTORY OF NICOTINE DEPENDENCE [...] MAMMOGRAM FOR MALIGNANT NE 04/09/2018 JOSELUIS MOREIRA CLOTH COVERED HELMET PULLER Ot G47.10 HYPERSOMNIA, UNSPECIFIED 04/09/2018 JOSELUIS MOREIRA CLOTH COVERED HELMET PULLER Ot G47.10 HYPERSOMNIA, UNSPECIFIED 04/23/2018 JOSELUIS MOREIRA CLOTH COVERED HELMET PULLER Ot J30.9 ALLERGIC RHINITIS, UNSPECIFIED 04/23/2018 JOSELUIS MOREIRA CLOTH COVERED HELMET PULLER Ot R91.1 SOLITARY PULMONARY NODULE 04/23/2018 JOSELUIS MOREIRA CLOTH COVERED HELMET PULLER Ot Z87.891 PERSONAL HISTORY OF NICOTINE DEPENDENCE 05/24/2018 JOSELUIS MOREIRA CLOTH COVERED HELMET PULLER Ot J30.9 ALLERGIC RHINITIS, UNSPECIFIED 05/24/2018 JOSELUIS MOREIRA CLOTH COVERED HELMET PULLER Ot R05 COUGH 05/24/2018 JOSELUIS MOREIRA CLOTH COVERED HELMET PULLER Ot R06.00 DYSPNEA, UNSPECIFIED 05/24/2018 JOSELUIS MOREIRA CLOTH COVERED HELMET PULLER Ot R91.8 OTHER NONSPECIFIC ABNORMAL FINDING OF DWAIN 05/24/2018 JOSELUIS MOREIRA CLOTH COVERED HELMET PULLER Ot Z87.891 PERSONAL HISTORY OF NICOTINE DEPENDENCE 05/27/2018 JOSELUIS MOREIRA CLOTH COVERED HELMET PULLER Ot J30.9 ALLERGIC RHINITIS, UNSPECIFIED 05/27/2018 JOSELUIS MOREIRA CLOTH COVERED HELMET PULLER Ot R05 COUGH 05/27/2018 JOSELUIS MOREIRA CLOTH COVERED HELMET PULLER Ot R06.00 DYSPNEA, UNSPECIFIED 05/27/2018 JONATHON MOREIRAINE Bernice CLOTH COVERED HELMET PULLER Ot R91.8 OTHER NONSPECIFIC ABNORMAL FINDING OF DWAIN 05/27/2018 JOSELUIS MOREIRA CLOTH COVERED HELMET PULLER Ot Z87.891 PERSONAL HISTORY OF NICOTINE DEPENDENCE 06/06/2018 TRENT AVILEZ DO Ot Z01.818 ENCOUNTER FOR OTHER PREPROCEDURAL EXAMIN 06/06/2018 TRENT AVILEZ DO Ot Z01.818 ENCOUNTER FOR OTHER PREPROCEDURAL EXAMIN Procedures Code [place] [address] URINE TEST (IN- HOUSE) 07/30/2012 [id number] EXTRACTION OF POC, LOW CERVICAL, OPEN AP [...] ABO+Rh group ON NRG Transfusion band number [id number] [facility] Blood group antibody screen NEGATIVE [facility] Comprehensive metabolic panel - 07/05/16 16:35 Serum [...] calculation of estimated glomerular filtration rate > [facility] Serum or plasma glucose measurement (mass/volume) 84 [...] (count/volume) 0.0 10*3/uL 0.0-0.1 RH IMMUNE GLOBULIN [facility] - 07/06/16 05:22 RH IMMUNE GLOBULIN [facility] TRFSD 07/06/16 1356 NRG cell screen - 07/06/16 05:[id number] [facility] Transfusion band number [id number] [facility] [id number] 1 300ug NRG Erythrocytes./1000 erythrocytes 08-05-16 NRG cell screen NEGATIVE NEGATIVE cell screen 08/04/18 NR Lot number [id number] NRG Capillary blood glucose measurement by glucometer [...] human chorionic gonadotropin (hCG) measurement NEGATIVE NEGATIVE Methicillin resistant Staphylococcus aureus (MRSA) screening culture - 11:25 Methicillin resistant Staphylococcus aureus (MRSA) screening culture NEG NRG Complete blood count (CBC) with automated [...] Status Pt. Type Provider Facility Loc./Unit Complaint [id number] 05/13/2017 12:37:34 05/13/2017 23:59:59 CLS Outpatient Sunil Peña [id number] 03/02/2017 11:59:11 03/02/2017 23:59:59 CLS Outpatient Colleen Garduno [id number] 08/31/2016 18:47:58 08/31/2016 23:59:59 CLS Outpatient Colleen Garduno [id number] 04/13/2016 16:20:28 04/13/2016 23:59:59 CLS Outpatient [place] [id number] 09/25/2013 13:58:00 09/25/2013 23:59:59 CLS Outpatient MEET PETER DDS [id number] 07/30/2012 13:11:00 07/30/2012 23:59:59 CLS Outpatient [id number] 06/07/2018 11:18:00 06/07/2018 18:25:00 DIS Outpatient TRENT AVILEZ DO [facility] SDC VENTRAL HERNIA [id number] 06/04/2018 05:36:00 06/04/2018 12:58:00 DIS Outpatient TRENT AVILEZ DO [facility] PREOP LAP VENTRAL HERNIA REP. POSS.OPEN [id number] 05/21/2018 15:09:00 05/21/2018 23:59:59 CLS Outpatient JOSELUIS MOREIRA APRN [facility] RT COUGH,DYSPNEA [id number] 04/05/2018 09:00:00 04/05/2018 23:59:59 CLS Preadmit AVILEZTRENT BAUM DO [facility] SDC VENTRAL HERNIA [id number] 04/05/2018 14:15:00 04/05/2018 15:00:00 DIS Outpatient JOSELUIS MOREIRA APRN [facility] SLEEP HYPERSOMNIA, SUSPECTED KATTY [id number] 04/04/2018 07:49:00 04/04/2018 23:59:59 CLS Outpatient JOSELUIS MOREIRA APRN [facility] RAD COUGH,DYSPNEA [id number] 03/22/2018 20:17:00 03/23/2018 01:15:00 DIS Emergency AIXA MACK DO [facility] ER ABD PAIN,DIARRHEA [id number] 03/16/2018 09:29:00 03/16/2018 23:59:59 CLS Outpatient TEMO JUAN DO [facility] RAD REDUCIBLE BULGE OF ABD WALL/SCREENING/METRORRHAGIA [id number] 07/05/2016 17:40:00 07/07/2016 16:00:00 DIS Inpatient TEMO JUAN DO [facility] WS [id number] 06/30/2016 20:15:00 07/01/2016 00:15:00 DIS Outpatient TEMO JUAN DO [facility] WSo HIGH BP;CONTRACTIONS [id number] 06/26/2016 20:40:00 06/27/2016 11:18:00 DIS Outpatient TEMO JUAN DO [facility] WSo CONTRACTIONS/ PRESSURE [id number] 06/14/2016 18:24:00 06/14/2016 20:47:00 DIS Outpatient MOSLEY YOANA [facility] WSo ELEVATED BLOOD PRESSURE [id number] 07/09/2018 12:15:00 PEN Preadmit JOSELUIS MOREIRA APRN [facility] RAD COUGH,DYSPNEA [id number] 03/05/2017 14:02:39 Document Registration [id number] 03/05/2017 12:19:26 Document Registration
[2018-06-10 20:36] VITALS: BP 173/79
[2018-06-10] MEDS ORDERED: CEFEPIME INJECTION 1,000 MG in NS (IVPB) 50 ML IV ONE (20:45)
[2018-06-10] MEDS ORDERED: NS IV 1000 ML 1,500 ML IV ONE (20:45)
[2018-06-10] MEDS ORDERED: KETOROLAC 30 MG/ML VIAL IVP ONE (20:45)
--- NOTE | 2018-06-10 20:53 | ED Abdominal Pain ---
General Chief Complaint: Abdominal/GI Problems Stated Complaint: ABD PAIN,FEVER POST SURGERY Nursing Triage Note: PT REPORTS ABD PAIN ET FEVER. SHE HAD HERNIA REPAIR ON MONDAY WITH DR AVILEZ. FEVER HAS BEEN HIGH 102.6 Sepsis Screen: Possible Sepsis Risk Source of Information: Patient Exam Limitations: No Limitations History of Present Illness Date Seen by Provider: Jun 10, 2018 Time Seen by Provider: 20:35 Initial Comments Patient presents to the ER by private conveyance with her significant other and chief complaint that she is having some increased abdominal pain after a ventral hernia repair by Dr. Avilez on . She also was having bowel movements but now today she's had one small little bowel movement and passing feeling distended. She also noted herself to have a fever of 101 today. She's been using hydrocodone with inadequate improvement. She notes her pain now to be a 10 out of 10. She has not been getting up moving around she been laying in bed. She's had no shortness of breath that she's had an occasional productive cough. She denies any chest pain. She has no swelling or pain in her deep veins. She has no dysuria. She's had nausea with some retching but no significant vomiting. She's had a history of C-sections as well as a tubal ligation and tubal reanastomosis in the past. Her wounds do not have any discharge or draining. Most of her pain is in her right lower groin area at the site of the surgical repair. The surgery was done laparoscopically. Allergies and Home Medications Allergies Coded Allergies: amlodipine (Verified Allergy, Mild, scalp crawling, 06/04/18) Home Medications Albuterol Sulfate 1 Puff Puff, 2 PUFF IH Q4H PRN for SHORTNESS OF BREATH, ( Reported) 1 PUFF = 90 MCG Docusate Sodium 100 Mg Capsule, 100 MG PO BID Prescribed by: TRENT AVILEZ on 06/07/18 1535 Fluticasone/Vilanterol 1 Each Blst.w.dev, 1 EACH IH DAILY, (Reported) Hydrocodone Bit/Acetaminophen 1 Tab Tab, 1-2 TAB PO Q6H PRN for PAIN-MODERATE Prescribed by: TRENT AVILEZ on 06/07/18 1535 Ondansetron 4 Mg Tab.rapdis, 4 MG PO Q6H PRN for NAUSEA/VOMITING Prescribed by: BERNARDA MARTÍNEZ on 06/10/182215 Oxycodone HCl/Acetaminophen 1 Each Tablet, 1-2 TAB PO Q6H PRN for PAIN-MODERATE Prescribed by: BERNARDA MARTÍNEZ on 06/10/182215 Patient Home Medication List Home Medication List Reviewed: Yes Review of Systems Review of Systems Constitutional: chills, diaphoresis, fever, malaise; No weakness EENTM: No Blurred Vision, No Double Vision Respiratory: Cough; Denies Shortness of Air, Denies Wheezing Cardiovascular: Denies Chest Pain, Denies Lightheadedness Gastrointestinal: See HPI, Abdomen Distended, Abdominal Pain, Constipated; Denies Diarrhea; Nausea; Denies Poor Fluid Intake Genitourinary: Denies Burning, Denies Discharge Musculoskeletal: No back pain, No joint pain Skin: see HPI Past Ewyjpzu-Chqqdw-Nvvzfc Hx Patient Social History Alcohol Use: Rarely Uses Recreational Drug Use: No Smoking Status: Former Smoker Type Used: Cigarettes Former Smoker, Quit: Jun 30, 2001 Recent Foreign Travel: No Contact w/Someone Who Travel: No Recent Infectious Disease Expo: No Recent Hopitalizations: Yes (HERNIA REPAIR 06/07/18) Immunizations Up To Date PED Vaccines UTD: No Date of Influenza Vaccine: Jan 25, 2016 Seasonal Allergies Seasonal Allergies: No Past Medical History Surgeries: Yes (tubal, tubal revision, wisdom, previous c/s) Section, Gallbladder, Tonsillectomy, Tubal Ligation Respiratory: Yes Asthma Cardiac: No Neurological: No Last Menstrual Period: Jun 05, 2018 Reproductive Disorders: No Sexually Transmitted Disease: No HIV/AIDS: No Genitourinary: No Gastrointestinal: Yes Abdominal Hernia Musculoskeletal: No Endocrine: Yes (OBESITY) HEENT: Yes (READING GLASSES) Loss of Vision: Bilateral Hearing Impairment: Denies Cancer: No Psychosocial: Yes (MILD) Depression Integumentary: No Blood Disorders: No Adverse Reaction/Blood Tranf: No (N/A) Family Medical History Liver transplant 19 FATHER Physical Exam Vital Signs Vital Signs - First Documented 06/10/18 19:34 Temp 97.7 Pulse 101 Resp 16 B/P (MAP) 190/68 (108) Pulse Ox 97 O2 Delivery Room Air Capillary Refill : Less Than 3 Seconds Height/Weight/BMI Height: 5'1.00" Weight: 235lbs. 0.0oz. 106.055729ty; 44.8 BMI Method:Stated General Appearance: WD/WN, moderate distress HEENT: PERRL/EOMI, normal ENT inspection, TMs normal, pharynx normal Neck: non-tender, full range of motion, supple, normal inspection Respiratory: chest non-tender, lungs clear, normal breath sounds, no respiratory distress, no accessory muscle use Cardiovascular: normal peripheral pulses, regular rate, rhythm, no edema Peripheral Pulses: 2+ Dorsalis Pedis (R), 2+ Left Dors-Pedis (L) Gastrointestinal: soft, abnormal bowel sounds (quiescent); No guarding; tenderness (diffusely but especially in the right lower quadrant.) Extremities: normal range of motion, non-tender, normal inspection, no pedal edema, no calf tenderness, normal capillary refill Back: normal inspection, no CVA tenderness Neurologic/Psychiatric: alert, normal mood/affect, oriented x 3 Skin: normal color, warm/dry, other (small left surgical wounds covered with a cyanoacrylate and minimal hot pink skin edges that are well approximated, without erythema, induration, fluctuance, discharge.) Focused Exam Lactate Level 06/10/18 20:45: Lactic Acid Level 1.02 Lactic Acid Level Laboratory Tests Test 06/10/18 20:45 Lactic Acid Level 1.02 MMOL/L (0.50-2.00) Progress/Results/Core Measures Results/Orders Lab Results Laboratory Tests Test 06/10/18 20:35 06/10/18 20:45 Range/Units Urine Color YELLOW Urine Clarity CLEAR Urine pH 6 5-9 Urine Specific [place] 1.015 L 1.016-1.022 Urine Protein 1+ H NEGATIVE Urine Glucose (UA) NEGATIVE NEGATIVE Urine Ketones NEGATIVE NEGATIVE Urine Nitrite NEGATIVE NEGATIVE Urine Bilirubin NEGATIVE NEGATIVE Urine Urobilinogen 4 H NORMAL MG/DL Urine Leukocyte Esterase 2+ H NEGATIVE Urine RBC (Auto) 4+ H NEGATIVE Urine RBC 2-5 H /HPF Urine WBC 0-2 /HPF Urine Squamous Epithelial Cells 2-5 /HPF Urine Crystals NONE /LPF Urine Bacteria TRACE /HPF Urine Casts NONE /LPF Urine Mucus NEGATIVE /LPF Urine Culture Indicated NO White Blood Count 10.0 4.3-11.0 10^3/uL Red Blood Count 4.14 L 4.35-5.85 10^6/uL Hemoglobin 8.4 L 11.5-16.0 G/DL Hematocrit 29 L 35-52 % Mean Corpuscular Volume 70 L 80-99 FL Mean Corpuscular Hemoglobin 20 L 25-34 PG Mean Corpuscular Hemoglobin Concent 29 L 32-36 G/DL Red Cell Distribution Width 17.3 H 10.0-14.5 % Platelet Count 346 130-400 10^3/uL Mean Platelet Volume 10.2 7.4-10.4 FL Neutrophils (%) (Auto) 68 42-75 % Lymphocytes (%) (Auto) 20 12-44 % Monocytes (%) (Auto) 8 0-12 % Eosinophils (%) (Auto) 3 0-10 % Basophils (%) (Auto) 0 0-10 % Neutrophils # (Auto) 6.8 1.8-7.8 X 10^3 Lymphocytes # (Auto) 2.0 1.0-4.0 X 10^3 Monocytes # (Auto) 0.8 0.0-1.0 X 10^3 Eosinophils # (Auto) 0.3 0.0-0.3 10^3/uL Basophils # (Auto) 0.0 0.0-0.1 10^3/uL Prothrombin Time 13.0 12.2-14.7 SEC INR Comment 1.0 0.8-1.4 Activated Partial Thromboplast Time 34 24-35 SEC Sodium Level 138 135-145 MMOL/L Potassium Level 3.8 3.6-5.0 MMOL/L Chloride Level 103 98-107 MMOL/L Carbon Dioxide Level 25 21-32 MMOL/L Anion Gap 10 5-14 MMOL/L Blood Urea Nitrogen 10 7-18 MG/DL Creatinine 0.71 0.60-1.30 MG/DL Estimat Glomerular Filtration Rate > 60 BUN/Creatinine Ratio 14 Glucose Level 108 H 70-105 MG/DL Lactic Acid Level 1.02 0.50-2.00 MMOL/L Calcium Level 8.9 8.5-10.1 MG/DL Corrected Calcium 8.8 8.5-10.1 MG/DL Total Bilirubin 0.9 0.1-1.0 MG/DL Aspartate Amino Transf (AST/SGOT) 18 5-34 U/L Alanine Aminotransferase (ALT/SGPT) 20 0-55 U/L Alkaline Phosphatase 70 40-136 U/L Total Protein 7.2 6.4-8.2 GM/DL Albumin 4.1 3.2-4.5 GM/DL Micro Results Microbiology 06/10/18 Influenza Types A,B Antigen (ANN MARIE) - Final, Complete My Orders Orders - BERNARDA MARTÍNEZ Cbc With Automated Diff (06/10/18 20:42) Comprehensive Metabolic Panel (06/10/18 20:42) Blood Culture (06/10/18 20:42) Sputum Culture (06/10/18 20:42) Urinalysis (06/10/18 20:42) Urine Culture (06/10/18 20:42) Protime With Inr (06/10/18 20:42) Partial Thromboplastin Time (06/10/18 20:42) Chest 1 View, Ap/Pa Only (06/10/18 20:42) Saline Lock/Iv-Start (06/10/18 20:42) Saline Lock/Iv-Start (06/10/18 20:42) Vital Signs Adult Sepsis Patie Q15M (06/10/18 20:42) O2 (06/10/18 20:42) Remove Rings In Anticipation O (06/10/18 20:42) Lactic Acid Analyzer (06/10/18 20:42) Influenza A And B Antigens (06/10/18 20:42) Ns Iv 1000 Ml (Sodium Chloride 0.9%) (06/10/18 20:45) Cefepime Injection (Maxipime Injection) (06/10/18 20:45) Ketorolac Injection (Toradol Injection) (06/10/18 20:45) Abdomen/Kub 1view (06/10/18 20:42) Ondansetron Injection (Zofran Injectio (06/10/18 21:00) Oxycodone/Acet 10/325mg Tablet (Percocet (06/10/18 22:30) Oxycodone/Acet 10/325mg Tablet (Percocet (06/10/18 22:30) Rx-Oxycodone/Apap 5-325 Mg (Rx-Percocet (06/10/18 22:30) Medications Given in ED Current Medications Medications Dose Ordered Sig/Kelin Route Start Time Stop Time Status Last Admin Dose Admin Cefepime HCl 1000 mg/Sodium Chloride 50 ml @ 100 mls/hr ONCE ONCE IV 06/10/18 20:45 06/10/18 21:14 DC 06/10/18 22:17 100 MLS/HR Ketorolac Tromethamine 30 mg ONCE ONCE IVP 06/10/18 20:45 06/10/18 20:49 DC 06/10/18 21:02 30 MG Ondansetron HCl 4 mg ONCE ONCE IVP 06/10/18 21:00 06/10/18 21:01 DC 06/10/18 21:02 4 MG Sodium Chloride 1,500 ml @ 1,500 mls/hr ONCE ONCE IV 06/10/18 20:45 06/10/18 21:44 DC 06/10/18 21:02 1,500 MLS/HR Vital Signs/I&O 06/10/18 06/10/18 06/10/18 19:34 20:36 20:38 Temp 97.7 100.4 Pulse 101 103 Resp 16 20 B/P (MAP) 190/68 (108) 173/79 (110) Pulse Ox 97 99 99 O2 Delivery Room Air Room Air Room Air Blood Pressure Mean: 108 Progress Progress Note : Time: 20:53 Progress Note Surgical wounds do not seem to be involved. We'll check urine and chest x-ray since she's having some cough. Mildly concerning that she's had decreased bowel movements over she did have a small bowel movement this morning. If we do not find anything else on lab such as influenza then we will obtain a CT of the abdomen. For now plain film of the chest and abdomen. Toradol and Zofran for her symptoms. Septic workup secondary to tachycardia and temperature of 100.9 here in the ER. We'll do fluids based on her ideal body weight because her BMI is north of 40. Her adjusted body weight is about 157 pounds. 20 cc/kg would be a little less than 1500 cc. Diagnostic Imaging Diagonstic Imaging: Xray Plain Films/CT/US/NM/MRI: chest (1 view) Comments My basilar atelectasis but no infiltrates seen on one view chest x-ray. Reviewed: Reviewed by Me Diagonstic Imaging: Xray Plain Films/CT/US/NM/MRI: abdomen (KUB 1 view) Comments Nonspecific bowel gas pattern. No acute osseous abnormality. Reviewed: Reviewed by Me Consults : Consulting Physician: DIANA MCCLELLAND DO Consults Notes Discussed the case with Dr. Mcclelland who is familiar with the patient and states that most likely the fever is due to some kind of atelectasis and recommends that we encouraged her to use the incentive spirometer and treat her pain appropriately. Departure Impression Primary Impression: Abdominal wall pain Additional Impressions: Postoperative pain Alteration in bowel elimination due to postoperative ileus Atelectasis of both lungs Disposition: 01 HOME, SELF-CARE Condition: Stable Departure-Patient Inst. Decision time for Depature: 22:12 Referrals: NO,LOCAL PHYSICIAN (PCP/Family) Primary Care Physician Patient Instructions: Atelectasis, Postoperative Ileus (DC) Add. Discharge Instructions: Use her incentive spirometer 10 times an hour for the next week while awake. Use ibuprofen 800 mg every 8 hours in addition to your Percocet 1-2 tablets every 6 hours as needed to control your pain. Clear liquid diet. Advance as he started to have bowel movements. MiraLAX 1 capful and 6-8 ounces of fluids once or twice a day until your bowels are moving again. Chew bubble gum and get up and stay active walking around the house. Follow-up with general surgery in the clinic within the next week if needed. Use Zofran 1 tablet every 6 hours as needed for nausea. If your symptoms become intractable then you should return to the primary care provider or ER for further management. All discharge instructions reviewed with patient and/or family. Voiced understanding. Scripts Ondansetron (Ondansetron Odt) 4 Mg Tab.rapdis 4 MG PO Q6H PRN for NAUSEA/VOMITING, #15 TAB 0 Refills Prov: BERNARDA MARTÍNEZ 06/10/18 Oxycodone HCl/Acetaminophen (Percocet 10-325 mg Tablet) 1 Each Tablet 1-2 TAB PO Q6H PRN for PAIN-MODERATE MDD 3 for 5 Days, #25 TAB 0 Refills Prov: BERNARDA MARTÍNEZ 06/10/18 Copy Copies To 1: TRENT AVILEZ DO BERNARDA MARTÍNEZ Jun 10, 2018 20:53
[2018-06-10] MEDS ORDERED: ONDANSETRON 4 MG/2 ML (SDV) Z0FRAN IVP ONE (21:00)
[2018-06-10 21:03] LABS: BASOPHILS % (AUTO) 0 % (0-10); EOSINOPHILS # (AUTO) 0.3 10^3/uL (0.0-0.3); EOSINOPHILS % (AUTO) 3 % (0-10); HEMATOCRIT 29 % (35-52); HEMOGLOBIN 8.4 G/DL (11.5-16.0); LYMPHOCYTES % (AUTO) 20 % (12-44); MEAN CORPUSCULAR HEMOGLOBIN 20 PG (25-34); MEAN CORPUSCULAR HGB CONC 29 G/DL (32-36); MEAN CORPUSCULAR VOLUME 70 FL (80-99); MEAN PLATELET VOLUME 10.2 FL (7.4-10.4); MONOCYTES # (AUTO) 0.8 X 10^3 (0.0-1.0); MONOCYTES % (AUTO) 8 % (0-12); NEUTROPHILS # (AUTO) 6.8 X 10^3 (1.8-7.8); NEUTROPHILS % (AUTO) 68 % (42-75); PLATELET COUNT 346 10^3/uL (130-400); RED CELL DISTRIBUTION WIDTH 17.3 % (10.0-14.5)
[2018-06-10 21:17] LABS: BILIRUBIN,URINE NEGATIVE (NEGATIVE); CLARITY,URINE CLEAR; COLOR,URINE YELLOW; GLUCOSE, URINE (UA) NEGATIVE (NEGATIVE); KETONES,URINE NEGATIVE (NEGATIVE); LEUKOCYTE ESTERASE ,URINE 2+ (NEGATIVE); NITRITE,URINE NEGATIVE (NEGATIVE); PH,URINE 6 (5-9); PROTEIN,URINE 1+ (NEGATIVE); UROBILINOGEN,URINE 4 MG/DL (NORMAL)
[2018-06-10 21:26] LABS: ALANINE AMINOTRANSFERASE 20 U/L (0-55); ALBUMIN 4.1 GM/DL (3.2-4.5); ALKALINE PHOSPHATASE 70 U/L (40-136); BILIRUBIN,TOTAL 0.9 MG/DL (0.1-1.0); BUN/CREATININE RATIO 14; CALCIUM 8.9 MG/DL (8.5-10.1); CARBON DIOXIDE 25 MMOL/L (21-32); CHLORIDE 103 MMOL/L (98-107); CREATININE SERUM 0.71 MG/DL (0.60-1.30); GFR ESTIMATED > 60; GLUCOSE 108 MG/DL (70-105); POTASSIUM 3.8 MMOL/L (3.6-5.0); SODIUM 138 MMOL/L (135-145); TOTAL PROTEIN 7.2 GM/DL (6.4-8.2)
[2018-06-10 21:30] LABS: BACTERIA,URINE TRACE /HPF; WBC,URINE 0-2 /HPF
--- NOTE | 2018-06-10 22:05 | NUR ---
PT BACK FROM CT VIA W/C NO S/S OF DISTRESS
[2018-06-10] MEDS ORDERED: OXYC1TAB12 PO (22:16)
[2018-06-10] MEDS ORDERED: ONDA4TAB11 PO (22:16)
[2018-06-10] MEDS ORDERED: RX-OXYCODONE/APAP 5-325 MG #4 TAB PK PO PRN (22:30)
[2018-06-10] MEDS ORDERED: oxyCODONE/APAP 10/325MG (PERCOCET 10) TABLET PO ONE ×2 (22:30)
--- NOTE | 2018-06-10 22:38 | Diagnostic Imaging Report ---
EXAMINATION: PA chest at 9:54 PM INDICATION: Abdominal pain The heart size is within normal limits and stable when compared to 03/22/2018. In the interval since the prior study a few thin strands of atelectasis/infiltrate have developed in both lung bases. The lungs are otherwise generally clear. There is no pleural effusion noted. The mediastinum is not widened. The osseous structures are intact. IMPRESSION: 1. The appearance of the chest has worsened since the prior study as bands of atelectasis/infiltrate have developed in each lower lobe. Clinical followup is recommended. 2. There is no acute cardiopulmonary abnormality noted otherwise. Dictated by: Dictated on workstation # [id number]
--- NOTE | 2018-06-10 22:41 | Diagnostic Imaging Report ---
INDICATION: Abdominal pain. EXAMINATION: Supine abdomen at 10:02 p.m. FINDINGS: In the interval since the prior exam of 03/22/2018 there has been some increase in the amount of gas in both the large and small bowel. This appearance is still nonspecific, however. There is no sign of a bowel obstruction. There is a moderate amount of fecal material in the ascending and transverse colon. There is no mass, organomegaly or pathological calcification evident. The liver shadow is prominent but no different than on the prior exam. The osseous structures are intact. Surgical clips are again seen overlying the right upper quadrant. IMPRESSION: The bowel gas pattern remains nonspecific. There is still no evidence for a bowel obstruction. Dictated by: Dictated on workstation # [id number]
[2018-06-10 22:46] VITALS: BP 154/76
== END 2018-06-10 22:46 | disposition home or self-care (01) ==
LOC: EDUNIT# 19:12 → ER 19:13
DX: G89.18 Other acute postprocedural pain (principal); R10.84 Generalized abdominal pain; R10.31 Right lower quadrant pain; K91.89 Other postprocedural complications and disorders of digestive system; K56.7 Ileus, unspecified; J98.11 Atelectasis; R19.4 Change in bowel habit; E66.9 Obesity, unspecified; F32.9 Major depressive disorder, single episode, unspecified; Z98.890 Other specified postprocedural states; Z88.8 Allergy status to other drugs, medicaments and biological substances; Z79.51 Long term (current) use of inhaled steroids; Z98.51 Tubal ligation status; Z87.891 Personal history of nicotine dependence; Z68.41 Body mass index [BMI] 40.0-44.9, adult; Z90.89 Acquired absence of other organs
CPT/HCPCS: 36415; 71045; 74018; 80053; 81000; 83605; 85025; 85610; 85730; 87040; 87088; 87804

== ENCOUNTER → 2018-07-09 | Outpatient (CLI) | payer MEDICAID ==
[~2018-07-09] MED LIST changes: +ONDA4TAB11 PO; +OXYC1TAB12 PO
--- NOTE | 2018-07-09 13:04 | Diagnostic Imaging Report ---
PROCEDURE: CT chest without contrast. TECHNIQUE: Multiple contiguous axial images were obtained through the chest without the use of intravenous contrast. INDICATION: Cough and dyspnea and abnormal CT scan of lungs. Comparison is made to study of 04/04/2018. Similar to the previous study, there is a fairly well-circumscribed 1.2 cm nodule in the left lower lobe. There is no evidence of spiculation or significant interval growth. Lungs are otherwise clear. There is no significant pleural or pericardial fluid. No pathologic adenopathy is identified. Gallbladder surgically absent. IMPRESSION: Stable appearance of 1.2 cm nodule in the left lower lobe. Follow up study could be performed in 12 months to document ongoing stability. Dictated by: Dictated on workstation # [id number]
== END ==
LOC: RAD 12:13
PROVIDERS: ATTEND Nurse Practitioner Family
DX: J30.9 Allergic rhinitis, unspecified (principal); R91.1 Solitary pulmonary nodule; G47.10 Hypersomnia, unspecified; Z87.891 Personal history of nicotine dependence; Z90.49 Acquired absence of other specified parts of digestive tract
CPT/HCPCS: 71250